=== PATIENT | female | born 1935 | race Caucasian/White ===

== ENCOUNTER 2017-02-04 11:01 | Inpatient (IN) | payer BC, MEDICARE, OTHER ==
[~2017-02-04] VITALS: Ht 162.6 cm; Wt 69.6 kg
[2017-02-04] MEDS ORDERED: SODIUM CHLORIDE 0.9% 1,000ML IVBOLUS ONE (11:30)
[2017-02-04] MEDS ORDERED: SODIUM CHLORIDE FLUSH 10ML SYR IVF ONE (11:30)
[2017-02-04] MEDS ORDERED: LORazepam 2 MG/ML, 1ML IVPush ONE (11:53)
[2017-02-04] MEDS ORDERED: LORazepam 2 MG/ML, 1ML ONE (11:56)
[2017-02-04] MEDS ORDERED: ONDANSETRON 2MG/ML, 2ML ONE (11:56)
[2017-02-04] MEDS ORDERED: ONDANSETRON 2MG/ML, 2ML IVPush ONE (12:00)
[2017-02-04] MEDS ORDERED: PLEASE ENTER ALLERGIES MC SCH ×2 (12:00)
[2017-02-04 12:28] LABS: ASPARTATE AMINO TRANSFERASE 17 U/L (15-37); BLOOD UREA NITROGEN 9 mg/dL (7-18)
[2017-02-04 12:35] LABS: IS PT STATUS REG ER OR PRE ER? YES
[2017-02-04] MEDS ORDERED: ZOLP10TA5 PO (14:28)
[2017-02-04] MEDS ORDERED: TRAZ50TA18 PO (14:28)
[2017-02-04] MEDS ORDERED: SERT100T5 PO (14:28)
[2017-02-04] MEDS ORDERED: SIMV20TA3 PO (14:28)
[2017-02-04] MEDS ORDERED: OXYB5TAB PO (14:28)
[2017-02-04] MEDS ORDERED: ESTR2TAB PO (14:28)
[2017-02-04] MEDS ORDERED: ONDA4TAB13 SL (14:28)
[2017-02-04] MEDS ORDERED: ASPIRIN 325 MG TABLET PO STA (14:56)
[2017-02-04] MEDS ORDERED: ASPIRIN 325 MG TABLET ONE (15:11)
[2017-02-04] MEDS ORDERED: GUAIFENESIN/DM 200-20MG, 10ML UDC PO PRN (16:00)
[2017-02-04] MEDS ORDERED: hydrALAzine 20 MG/ML, 1ML IVPush PRN (16:00)
[2017-02-04] MEDS ORDERED: DOCUSATE 100 MG CAPSULE PO PRN (16:00)
[2017-02-04] MEDS ORDERED: HYDROcodone/APAP 5/325 TABLET PO PRN (16:00)
[2017-02-04] MEDS ORDERED: ONDANSETRON 2MG/ML, 2ML IVPush PRN ×2 (16:00)
[2017-02-04] MEDS ORDERED: ZOLPIDEM 5MG TABLET PO PRN (16:00)
[2017-02-04 16:27] VITALS: BP 158/74
[2017-02-04] MEDS: D5%-0.9% NACL+KCL 20MEQ 1,000 ML IV SCH (17:42)
[2017-02-04] MEDS: ENOXAPARIN 40 MG/0.4 ML SQ SCH (17:42)
[2017-02-04 18:30] VITALS: BP 111/70
[2017-02-04] MEDS ORDERED: LORazepam 0.5MG TABLET PO ONE (18:30)
[2017-02-04] MEDS ORDERED: LORazepam 1MG TABLET ONE (18:34)
[2017-02-04 20:05] VITALS: BP 141/83
[2017-02-04] MEDS: TRAZODONE 50MG TABLET PO SCH (21:34)
[2017-02-04] MEDS: SIMVASTATIN 20 MG TABLET PO SCH (21:35)
[2017-02-05 00:08] VITALS: BP 106/65
[2017-02-05] MEDS: ASPIRIN 325 MG TABLET PO SCH (05:46)
[2017-02-05 06:14] LABS: ASPARTATE AMINO TRANSFERASE 19 U/L (15-37); BLOOD UREA NITROGEN 8 mg/dL (7-18)
[2017-02-05 08:00] VITALS: BP 132/74
[2017-02-05] MEDS: D5%-0.9% NACL+KCL 20MEQ 1,000 ML IV SCH (09:23)
[2017-02-05 15:10] VITALS: BP 128/75
[2017-02-05] MEDS: ENOXAPARIN 40 MG/0.4 ML SQ SCH (15:21)
[2017-02-05] MEDS ORDERED: POTASSIUM CHLORIDE 20 MEQ TAB.ER.PRT PO ONE (19:30)
[2017-02-05 19:57] VITALS: BP 174/84
[2017-02-05 20:00] VITALS: BP 117/57
[2017-02-05] MEDS: TRAZODONE 50MG TABLET PO SCH (20:19)
[2017-02-05] MEDS: SIMVASTATIN 20 MG TABLET PO SCH (20:19)
[2017-02-06 02:00] VITALS: BP 123/68
[2017-02-06] MEDS: ASPIRIN 325 MG TABLET PO SCH (05:24)
[2017-02-06 06:00] LABS: BLOOD UREA NITROGEN 10 mg/dL (7-18)
[2017-02-06 08:07] VITALS: BP 117/51
[2017-02-06] MEDS ORDERED: POTASSIUM CHLORIDE 20 MEQ TAB.ER.PRT PO ONE (10:30)
[2017-02-06] MEDS ORDERED: MAGNESIUM SULFATE PMX 2GM/50ML 50 ML IV ONE (11:00)
[2017-02-06 16:02] VITALS: BP 120/56
[2017-02-06] MEDS: SIMVASTATIN 20 MG TABLET PO SCH (20:00)
[2017-02-06] MEDS: ENOXAPARIN 40 MG/0.4 ML SQ SCH (20:00)
[2017-02-06] MEDS: TRAZODONE 50MG TABLET PO SCH (20:00)
[2017-02-06 21:38] VITALS: BP 124/56
[2017-02-07 01:20] VITALS: BP 114/50
[2017-02-07 05:20] LABS: ASPARTATE AMINO TRANSFERASE 9 U/L (15-37); BLOOD UREA NITROGEN 12 mg/dL (7-18)
[2017-02-07] MEDS: ASPIRIN 325 MG TABLET PO SCH (05:32)
[2017-02-07 07:53] VITALS: BP 126/62
[2017-02-07 13:17] VITALS: BP 117/70
== END 2017-02-07 13:30 | DRG 199 ==
LOC: ED 14:17 → EDIP 14:59 → 4EST 16:26
PROVIDERS: ADMIT Internal Medicine; ATTEND Internal Medicine
PROC: 0T9B70Z Drainage of Bladder with Drainage Device, Via Natural or Artificial Opening (ICD-10-PCS; principal; 2017-02-04)
DX: S27.0XXA Traumatic pneumothorax, initial encounter (principal); G93.41 Metabolic encephalopathy; I63.30 Cerebral infarction due to thrombosis of unspecified cerebral artery; E87.1 Hypo-osmolality and hyponatremia; S22.49XA Multiple fractures of ribs, unspecified side, initial encounter for closed fracture; T76.11XA Adult physical abuse, suspected, initial encounter; D72.829 Elevated white blood cell count, unspecified; E83.42 Hypomagnesemia; E87.6 Hypokalemia; I65.21 Occlusion and stenosis of right carotid artery; R13.10 Dysphagia, unspecified
CPT/HCPCS: 36415; 70450; 70551; 71010; 71250; 80048; 80053; 80061; 80307; 81003; 82140; 82570; 83036; 83605; 83735; 83935; 84100; 84300; 84443; 84484; 85025; 85610; 85651; 85730; 86140; 86592; 87040; 87324; 93005; 93306; 93880; 96361; 96374; J1650; J2405; J2060; J3475; J3480; J7030

== ENCOUNTER 2017-04-12 15:23 | Inpatient (IN) | payer BC, MEDICARE ==
[~2017-04-12] VITALS: Ht 165.1 cm; Wt 73.3 kg
[~2017-04-12 15:23] MED LIST: ESTR2TAB PO; ONDA4TAB13 SL; OXYB5TAB PO; SERT100T5 PO; SIMV20TA3 PO; TRAZ50TA18 PO; ZOLP10TA5 PO
[2017-04-12] MEDS ORDERED: L.E.T SOLUTION TP ONE ×2 (15:42→15:47)
[2017-04-12] MEDS ORDERED: LIDOCAINE 1%, 20ML ONE ×2 (15:56→17:24)
[2017-04-12] MEDS ORDERED: SODIUM CHLORIDE 0.9% 1,000ML IVBOLUS ONE (16:00)
[2017-04-12] MEDS ORDERED: SODIUM CHLORIDE FLUSH 10ML SYR IVF ONE (16:00)
[2017-04-12] MEDS ORDERED: DIPH,PERTUSS(ACELL),TET VAC/PF 0.5 ML IM-VACC ONE ×2 (16:00→16:13)
[2017-04-12] MEDS ORDERED: MORPHINE SULFATE 4 MG/ML, 1ML ONE ×3 (16:08→17:52)
[2017-04-12] MEDS: MORPHINE SULFATE 4 MG/ML, 1ML IVPush PRN ×3 (16:15→23:24)
[2017-04-12] MEDS ORDERED: morphine SULFATE 10 MG/ML, 1ML IVPush ONE (16:30)
[2017-04-12 16:45] LABS: HEMATOCRIT 40.2 % (34.6-47.8); HEMOGLOBIN 13.6 g/dL (11.7-16.4); WHITE BLOOD COUNT 10.6 x10^3/uL (3.4-10)
[2017-04-12 16:50] LABS: BLOOD UREA NITROGEN 18 mg/dL (7-18)
[2017-04-12] MEDS ORDERED: MORPHINE SULFATE 4 MG/ML, 1ML IVPush ONE (17:30)
[2017-04-12] MEDS ORDERED: ACETAMINOPHEN 500 MG TABLET ONE (18:30)
[2017-04-12] MEDS ORDERED: ACETAMINOPHEN 500 MG TABLET PO ONE (19:00)
[2017-04-12] MEDS ORDERED: hydrALAzine 20 MG/ML, 1ML IVPush PRN (19:30)
[2017-04-12] MEDS ORDERED: ONDANSETRON 2MG/ML, 2ML IVPush PRN (19:30)
[2017-04-12] MEDS ORDERED: POLYETHYLENE GLYCOL 17 GM PACKET PO PRN (19:30)
[2017-04-12] MEDS ORDERED: BISACODYL 10 MG SUPP PR PRN (19:30)
[2017-04-12] MEDS ORDERED: ONDANSETRON 2MG/ML, 2ML ONE (20:38)
[2017-04-12] MEDS ORDERED: SODIUM CHLORIDE FLUSH 10ML SYR IVF SCH (21:00)
[2017-04-12 21:15] VITALS: BP 146/83
[2017-04-12] MEDS: OXYcodone IR 5MG TABLET PO PRN (21:42)
[2017-04-12] MEDS: SIMVASTATIN 20 MG TABLET PO SCH (23:03)
[2017-04-12] MEDS: LISINOPRIL 20 MG TABLET PO SCH (23:04)
[2017-04-12] MEDS: OXYBUTYNIN CHLORIDE 5 MG TABLET PO SCH (23:04)
[2017-04-13] VITALS (10 sets, daily range): BP systolic 90–146; BP diastolic 50–83
[2017-04-13] MEDS: OXYcodone IR 5MG TABLET PO PRN ×2 (01:44→05:46)
[2017-04-13 06:16] LABS: HEMATOCRIT 33.8 % (34.6-47.8); HEMOGLOBIN 11.5 g/dL (11.7-16.4)
[2017-04-13 06:35] LABS: ASPARTATE AMINO TRANSFERASE 13 U/L (15-37); BLOOD UREA NITROGEN 17 mg/dL (7-18)
[2017-04-13] MEDS ORDERED: SODIUM CHLORIDE 0.9% 1,000 ML IV SCH (08:00)
[2017-04-13] MEDS: ACETAMINOPHEN 325 MG TABLET PO PRN ×3 (08:25→20:32)
[2017-04-13] MEDS: OXYBUTYNIN CHLORIDE 5 MG TABLET PO SCH ×3 (08:26→20:32)
[2017-04-13] MEDS: SERTRALINE 100MG TABLET PO SCH (09:00)
[2017-04-13] MEDS: LISINOPRIL 20 MG TABLET PO SCH ×2 (09:03→20:32)
[2017-04-13] MEDS: SENNA/DOCUSATE TABLET PO SCH (09:03)
[2017-04-13] MEDS ORDERED: SODIUM CHLORIDE 0.9%, 500ML IVBOLUS ONE (11:00)
[2017-04-13] MEDS ORDERED: POLYETHYLENE GLYCOL 17 GM PACKET PO PRN (20:00)
[2017-04-13] MEDS ORDERED: BISACODYL 10 MG SUPP PR PRN (20:00)
[2017-04-13] MEDS ORDERED: hydrALAzine 20 MG/ML, 1ML IVPush PRN (20:00)
[2017-04-13] MEDS: SIMVASTATIN 20 MG TABLET PO SCH (20:32)
[2017-04-14 03:08] VITALS: BP 126/68
[2017-04-14 06:25] LABS: HEMATOCRIT 34.9 % (34.6-47.8); HEMOGLOBIN 11.5 g/dL (11.7-16.4); WHITE BLOOD COUNT 8.1 x10^3/uL (3.4-10)
[2017-04-14 08:00] VITALS: BP 122/56
[2017-04-14] MEDS: SENNA/DOCUSATE TABLET PO SCH (09:11)
[2017-04-14] MEDS: SERTRALINE 100MG TABLET PO SCH (09:11)
[2017-04-14] MEDS: OXYBUTYNIN CHLORIDE 5 MG TABLET PO SCH ×3 (09:11→20:19)
[2017-04-14] MEDS: ACETAMINOPHEN 325 MG TABLET PO PRN ×2 (09:11→20:18)
[2017-04-14] MEDS: LISINOPRIL 20 MG TABLET PO SCH ×2 (09:12→20:18)
[2017-04-14] MEDS: SODIUM CHLORIDE 0.9% 1,000 ML IV SCH ×2 (09:45→20:24)
[2017-04-14] MEDS: MORPHINE SULFATE 4 MG/ML, 1ML IVPush PRN ×2 (12:39→16:35)
[2017-04-14] MEDS: ONDANSETRON 2MG/ML, 2ML IVPush PRN (16:27)
[2017-04-14 17:05] VITALS: BP 145/73
[2017-04-14 19:50] VITALS: BP 124/69
[2017-04-14] MEDS: SIMVASTATIN 20 MG TABLET PO SCH (20:19)
[2017-04-15 03:35] VITALS: BP 133/71
[2017-04-15 04:56] LABS: HEMATOCRIT 29.9 % (34.6-47.8); HEMOGLOBIN 10.4 g/dL (11.7-16.4); WHITE BLOOD COUNT 7.5 x10^3/uL (3.4-10)
[2017-04-15 05:04] LABS: BLOOD UREA NITROGEN 9 mg/dL (7-18)
[2017-04-15 07:40] VITALS: BP 102/64
[2017-04-15] MEDS: OXYBUTYNIN CHLORIDE 5 MG TABLET PO SCH ×3 (09:00→21:06)
[2017-04-15] MEDS: SENNA/DOCUSATE TABLET PO SCH (09:00)
[2017-04-15] MEDS: SERTRALINE 100MG TABLET PO SCH (09:00)
[2017-04-15] MEDS: LISINOPRIL 20 MG TABLET PO SCH ×2 (09:00→21:06)
[2017-04-15] MEDS: SODIUM CHLORIDE 0.9% 1,000 ML IV SCH (10:15)
[2017-04-15] MEDS: MORPHINE SULFATE 4 MG/ML, 1ML IVPush PRN (10:41)
[2017-04-15] MEDS: HYDROcodone/APAP 5/325 TABLET PO PRN (12:52)
[2017-04-15 13:56] VITALS: BP 140/68
[2017-04-15 19:15] VITALS: BP 136/73
[2017-04-15] MEDS: SIMVASTATIN 20 MG TABLET PO SCH (21:07)
[2017-04-16 01:42] VITALS: BP 145/75
[2017-04-16 05:51] LABS: HEMATOCRIT 33.5 % (34.6-47.8); HEMOGLOBIN 11.3 g/dL (11.7-16.4); WHITE BLOOD COUNT 8.3 x10^3/uL (3.4-10)
[2017-04-16 05:59] LABS: BLOOD UREA NITROGEN 9 mg/dL (7-18)
[2017-04-16 08:40] VITALS: BP 161/74
[2017-04-16] MEDS: OXYBUTYNIN CHLORIDE 5 MG TABLET PO SCH ×3 (08:50→21:22)
[2017-04-16] MEDS: LISINOPRIL 20 MG TABLET PO SCH ×2 (08:51→21:23)
[2017-04-16] MEDS: HYDROcodone/APAP 5/325 TABLET PO PRN ×2 (08:51→16:40)
[2017-04-16] MEDS: SERTRALINE 100MG TABLET PO SCH (08:51)
[2017-04-16] MEDS: SENNA/DOCUSATE TABLET PO SCH (08:52)
[2017-04-16] MEDS: ONDANSETRON 2MG/ML, 2ML IVPush PRN (08:55)
[2017-04-16 13:47] VITALS: BP 141/65
[2017-04-16] MEDS: ARTIFICIAL TEARS OPHTH SOLN 15ML EACHEYE PRN (16:54)
[2017-04-16 20:18] VITALS: BP 125/66
[2017-04-16] MEDS: SIMVASTATIN 20 MG TABLET PO SCH (21:22)
[2017-04-17 02:55] VITALS: BP 156/70
[2017-04-17] MEDS: HYDROcodone/APAP 5/325 TABLET PO PRN ×4 (05:09→17:21)
[2017-04-17 06:42] LABS: HEMATOCRIT 33.1 % (34.6-47.8); HEMOGLOBIN 11.3 g/dL (11.7-16.4)
[2017-04-17 06:51] LABS: BLOOD UREA NITROGEN 8 mg/dL (7-18)
[2017-04-17 07:45] VITALS: BP 149/66
[2017-04-17] MEDS: SENNA/DOCUSATE TABLET PO SCH (09:00)
[2017-04-17] MEDS ORDERED: SERTRALINE 50MG TABLET PO SCH (09:00)
[2017-04-17] MEDS: OXYBUTYNIN CHLORIDE 5 MG TABLET PO SCH ×3 (09:21→20:43)
[2017-04-17] MEDS: LISINOPRIL 20 MG TABLET PO SCH ×2 (09:21→20:44)
[2017-04-17] MEDS: ARTIFICIAL TEARS OPHTH SOLN 15ML EACHEYE PRN (09:29)
[2017-04-17 13:20] VITALS: BP 164/70
[2017-04-17 19:56] VITALS: BP 160/75
[2017-04-17] MEDS: SIMVASTATIN 20 MG TABLET PO SCH (20:44)
[2017-04-18 01:54] VITALS: BP 149/72
[2017-04-18] MEDS: HYDROcodone/APAP 5/325 TABLET PO PRN ×4 (02:13→22:33)
[2017-04-18 06:41] LABS: HEMATOCRIT 33.4 % (34.6-47.8); HEMOGLOBIN 11.3 g/dL (11.7-16.4); WHITE BLOOD COUNT 7.7 x10^3/uL (3.4-10)
[2017-04-18 06:55] LABS: BLOOD UREA NITROGEN 11 mg/dL (7-18)
[2017-04-18 07:46] VITALS: BP 150/66
[2017-04-18] MEDS: ONDANSETRON 2MG/ML, 2ML IVPush PRN (08:58)
[2017-04-18] MEDS: SENNA/DOCUSATE TABLET PO SCH (09:00)
[2017-04-18] MEDS: OXYBUTYNIN CHLORIDE 5 MG TABLET PO SCH ×3 (09:01→22:33)
[2017-04-18] MEDS: LISINOPRIL 20 MG TABLET PO SCH ×2 (09:01→22:33)
[2017-04-18 14:30] VITALS: BP 137/69
[2017-04-18 17:59] LABS: POTASSIUM,URINE RANDOM 16 mmol/L
[2017-04-18 19:12] VITALS: BP 127/68
[2017-04-18] MEDS: SIMVASTATIN 20 MG TABLET PO SCH (22:33)
[2017-04-19 02:08] VITALS: BP 147/61
[2017-04-19 05:16] LABS: HEMOGLOBIN 11.4 g/dL (11.7-16.4); WHITE BLOOD COUNT 7.2 x10^3/uL (3.4-10)
[2017-04-19 05:28] LABS: BLOOD UREA NITROGEN 10 mg/dL (7-18)
[2017-04-19] MEDS: SENNA/DOCUSATE TABLET PO SCH (08:03)
[2017-04-19] MEDS: OXYBUTYNIN CHLORIDE 5 MG TABLET PO SCH (08:14)
[2017-04-19] MEDS: ONDANSETRON 2MG/ML, 2ML IVPush PRN (08:14)
[2017-04-19] MEDS: LISINOPRIL 20 MG TABLET PO SCH (08:14)
[2017-04-19] MEDS: HYDROcodone/APAP 5/325 TABLET PO PRN ×2 (08:14→13:56)
[2017-04-19 08:30] VITALS: BP 152/73
[2017-04-19 14:30] VITALS: BP 143/71
[2017-04-19] MEDS ORDERED: HYDR-3240 PO (14:59)
[2017-04-19] MEDS ORDERED: LISI-170 PO (14:59)
[2017-04-19] MEDS ORDERED: FLU VACC QS2017-18 (36MOS+) UP/PF 0.5 ML IM-VACC ONE (15:30)
[2017-04-19] MEDS: ACETAMINOPHEN 325 MG TABLET PO PRN (15:51)
== END 2017-04-19 17:55 | disposition home or self-care (01) | DRG 580 ==
LOC: ED 18:09 → EDIP 18:41 → SUATTDRO 18:48 → 3NE 21:20
PROVIDERS: ADMIT Hospitalist; ATTEND Family Medicine
PROC: 0JQ00ZZ Repair Scalp Subcutaneous Tissue and Fascia, Open Approach (ICD-10-PCS; principal; 2017-04-12)
DX: S01.01XA Laceration without foreign body of scalp, initial encounter (principal); I50.32 Chronic diastolic (congestive) heart failure; I11.0 Hypertensive heart disease with heart failure; D62 Acute posthemorrhagic anemia; E87.1 Hypo-osmolality and hyponatremia; I65.21 Occlusion and stenosis of right carotid artery; W19.XXXA Unspecified fall, initial encounter; Z88.6 Allergy status to analgesic agent; E78.5 Hyperlipidemia, unspecified; R32 Unspecified urinary incontinence; Y93.89 Activity, other specified; Y92.89 Other specified places as the place of occurrence of the external cause; Y99.8 Other external cause status; Z86.73 Personal history of transient ischemic attack (TIA), and cerebral infarction without residual deficits
CPT/HCPCS: 12005; 36415; 70450; 72125; 80048; 80053; 81001; 82040; 82436; 83930; 83935; 84133; 84300; 84443; 85025; 85610; 85730; 87324; 90471; 90686; 90715; 93005; 96361; 96374; 96375; 96376; J2405; J2270; J7030; J7040

== ENCOUNTER 2017-05-19 10:04 | Emergency (ER) | payer MEDICARE ==
[~2017-05-19] VITALS: Ht 165.1 cm; Wt 67.0 kg
[~2017-05-19 10:04] MED LIST changes: +HYDR-3240 PO; +LISI-170 PO
[2017-05-19] MEDS ORDERED: LORazepam 2 MG/ML, 1ML ONE (10:28)
[2017-05-19] MEDS ORDERED: ONDANSETRON 2MG/ML, 2ML ONE (10:28)
[2017-05-19] MEDS ORDERED: SODIUM CHLORIDE 0.9% 1,000ML IVBOLUS ONE (10:30)
[2017-05-19] MEDS ORDERED: ONDANSETRON 2MG/ML, 2ML IVPush ONE (10:30)
[2017-05-19] MEDS ORDERED: LORazepam 2 MG/ML, 1ML IVPush ONE (10:30)
[2017-05-19 11:18] LABS: HEMATOCRIT 46.8 % (34.6-47.8); HEMOGLOBIN 15.7 g/dL (11.7-16.4); WHITE BLOOD COUNT 19.3 x10^3/uL (3.4-10)
[2017-05-19 11:32] LABS: DIFF TOTAL CELLS COUNTED 100 CELL DIFF
[2017-05-19 11:34] LABS: ANISOCYTOSIS 1+
[2017-05-19 11:37] LABS: ASPARTATE AMINO TRANSFERASE 15 U/L (15-37); BLOOD UREA NITROGEN 18 mg/dL (7-18); OVALOCYTES 1+
[2017-05-19 11:41] LABS: IS PT STATUS REG ER OR PRE ER? YES
[2017-05-19 11:43] LABS: VERIFY COUNTS? YES
[2017-05-19] MEDS ORDERED: HYDROcodone/APAP 5/325 TABLET ONE (13:11)
[2017-05-19] MEDS ORDERED: HYDROcodone/APAP 5/325 TABLET PO ONE (13:30)
[2017-05-19 14:14] VITALS: BP 166/74
== END 2017-05-19 14:21 | disposition home or self-care (01) ==
LOC: ED 12:39
DX: D72.829 Elevated white blood cell count, unspecified (principal); F43.20 Adjustment disorder, unspecified; R11.0 Nausea; I10 Essential (primary) hypertension; Z86.73 Personal history of transient ischemic attack (TIA), and cerebral infarction without residual deficits
CPT/HCPCS: 36415; 71010; 80053; 81001; 84484; 85025; 93005; 96361; 96374; 96375; 99285; J2060; J2405; J7030

== ENCOUNTER 2017-05-20 12:03 | Emergency (ER) | payer MEDICARE ==
[~2017-05-20] VITALS: Ht 165.1 cm; Wt 65.0 kg
[2017-05-20 12:17] VITALS: BP 170/69
== END 2017-05-20 15:09 | disposition home or self-care (01) ==
LOC: ED 14:30
DX: F41.1 Generalized anxiety disorder (principal); I10 Essential (primary) hypertension; Z86.73 Personal history of transient ischemic attack (TIA), and cerebral infarction without residual deficits
CPT/HCPCS: 99284

== ENCOUNTER 2018-01-12 10:23 | Emergency (ER) | payer MEDICARE ==
[~2018-01-12] VITALS: Ht 165.1 cm; Wt 75.0 kg
[2018-01-12] MEDS ORDERED: ZOLP-413 PO (10:36)
[2018-01-12 11:45] LABS: BASOPHILS # (AUTO) 0.02 x10^3/uL (0-0.1); BASOPHILS % (AUTO) 0 % (0-1); EOSINOPHILS # (AUTO) 0.01 x10^3/uL (0-0.4); EOSINOPHILS % (AUTO) 0 % (1-7); LYMPHOCYTES # (AUTO) 1.37 x10^3/uL (1-3.4); LYMPHOCYTES % (AUTO) 12 % (22-44); MD NO; MEAN CORPUSCULAR HEMOGLOBIN 31.4 pg (27.0-34.8); MEAN CORPUSCULAR HGB CONC 33.4 g/dL (32.4-35.8); MEAN CORPUSCULAR VOLUME 94.1 fL (80-100); MEAN PLATELET VOLUME 6.7 fL (7.4-10.4); MONOCYTES # (AUTO) 0.42 x10^3/uL (0.2-0.8); MONOCYTES % (AUTO) 4 % (2-9); NEUTROPHILS # (AUTO) 9.54 x10^3/uL (1.8-6.8); NEUTROPHILS % (AUTO) 84 % (42-75); PLATELET COUNT 478 x10^3/uL (130-400); RED BLOOD COUNT 4.28 x10^6/uL (3.82-5.3); RED CELL DISTRIBUTION WIDTH 13.1 % (9.6-15.2)
[2018-01-12 11:57] LABS: ALANINE AMINOTRANSFERASE 15 U/L (12-78); ALBUMIN 3.8 g/dL (3.4-5.0); ANION GAP 10 mmol/L (5-15); CALCIUM 9.6 mg/dL (8.5-10.1); CHLORIDE 101 mmol/L (98-107); CREATININE 0.71 mg/dL (0.55-1.02); TROPONIN I < 0.015 ng/mL (0.000-0.045)
[2018-01-12 12:00] LABS: ALKALINE PHOSPHATASE 102 U/L (45-117); BILIRUBIN,TOTAL 0.2 mg/dL (0.2-1.0); TOTAL PROTEIN 7.6 g/dL (6.4-8.2)
[2018-01-12] MEDS ORDERED: MORPHINE SULFATE 4 MG/ML, 1ML IVPush PRN (12:00)
[2018-01-12] MEDS ORDERED: FAMOTIDINE 20 MG/2 ML IVP ONE (12:00)
[2018-01-12] MEDS ORDERED: PROCHLORPERAZINE 5 MG/ML, 2ML IVPush ONE (12:00)
[2018-01-12] MEDS ORDERED: PROCHLORPERAZINE 5 MG/ML, 2ML ONE (12:17)
[2018-01-12] MEDS ORDERED: MORPHINE SULFATE 4 MG/ML, 1ML ONE (12:17)
[2018-01-12] MEDS ORDERED: FAMOTIDINE 20 MG/2 ML ONE (12:18)
[2018-01-12] MEDS ORDERED: SODIUM CHLORIDE 0.9%, 500ML IVBOLUS ONE (12:30)
[2018-01-12 12:32] LABS: MICROSCOPIC NOT IND
[2018-01-12 12:34] LABS: CULTURE INDICATED? NO
[2018-01-12 14:24] VITALS: BP 154/46
== END 2018-01-12 14:27 | disposition home or self-care (01) ==
LOC: ED 11:07
DX: K29.00 Acute gastritis without bleeding (principal); I10 Essential (primary) hypertension; Z86.73 Personal history of transient ischemic attack (TIA), and cerebral infarction without residual deficits
CPT/HCPCS: 36415; 71046; 74177; 80053; 81003; 83690; 84484; 85025; 93005; 96361; 96374; 96375; 99285; J0780; J7040; S0028

== ENCOUNTER 2018-01-15 09:05 | Emergency (ER) | payer MEDICARE ==
[~2018-01-15] VITALS: Ht 165.1 cm; Wt 78.0 kg
[~2018-01-15 09:05] MED LIST changes: +ZOLP-413 PO
[2018-01-15] MEDS ORDERED: SODIUM CHLORIDE FLUSH 10ML SYR IVF ONE (09:30)
[2018-01-15] MEDS ORDERED: ASPIRIN 81 MG TABLET CHEW PO ONE (09:30)
[2018-01-15] MEDS ORDERED: MAALOX/HYOSCYAMINE/LIDOCAINE 45 ML BTL PO ONE (09:30)
[2018-01-15] MEDS ORDERED: ASPIRIN 81 MG TABLET CHEW ONE (09:44)
[2018-01-15] MEDS ORDERED: MAALOX/HYOSCYAMINE/LIDOCAINE 45 ML BTL ONE (09:44)
[2018-01-15 10:12] LABS: BASOPHILS # (AUTO) 0.05 x10^3/uL (0-0.1); BASOPHILS % (AUTO) 1 % (0-1); EOSINOPHILS # (AUTO) 0.08 x10^3/uL (0-0.4); EOSINOPHILS % (AUTO) 1 % (1-7); LYMPHOCYTES # (AUTO) 1.76 x10^3/uL (1-3.4); LYMPHOCYTES % (AUTO) 21 % (22-44); MD NO; MEAN CORPUSCULAR HEMOGLOBIN 32.4 pg (27.0-34.8); MEAN CORPUSCULAR HGB CONC 34.2 g/dL (32.4-35.8); MEAN CORPUSCULAR VOLUME 94.6 fL (80-100); MEAN PLATELET VOLUME 6.8 fL (7.4-10.4); MONOCYTES % (AUTO) 5 % (2-9); NEUTROPHILS # (AUTO) 6.12 x10^3/uL (1.8-6.8); NEUTROPHILS % (AUTO) 73 % (42-75); PLATELET COUNT 486 x10^3/uL (130-400); RED BLOOD COUNT 4.12 x10^6/uL (3.82-5.3); RED CELL DISTRIBUTION WIDTH 13.3 % (9.6-15.2)
[2018-01-15 10:14] LABS: ALANINE AMINOTRANSFERASE 17 U/L (12-78); ALBUMIN 3.7 g/dL (3.4-5.0); ANION GAP 9 mmol/L (5-15); CHLORIDE 106 mmol/L (98-107); CREATININE 0.74 mg/dL (0.55-1.02)
[2018-01-15 10:19] LABS: ALKALINE PHOSPHATASE 92 U/L (45-117); TOTAL PROTEIN 7.4 g/dL (6.4-8.2); TROPONIN I < 0.015 ng/mL (0.000-0.045)
[2018-01-15 10:32] VITALS: BP 150/74
[2018-01-15 10:36] LABS: BILIRUBIN,TOTAL 0.2 mg/dL (0.2-1.0)
== END 2018-01-15 11:18 | disposition home or self-care (01) ==
LOC: ED 10:59
DX: K21.0 Gastro-esophageal reflux disease with esophagitis (principal); I10 Essential (primary) hypertension; Z86.73 Personal history of transient ischemic attack (TIA), and cerebral infarction without residual deficits; Z88.5 Allergy status to narcotic agent
CPT/HCPCS: 36415; 71045; 80053; 83690; 83735; 84443; 84484; 85025; 93005; 99285

== ENCOUNTER 2018-01-16 07:10 | Observation (INO) | payer MEDICARE ==
[~2018-01-16] VITALS: Ht 165.1 cm; Wt 75.8 kg
[2018-01-16] MEDS ORDERED: FAMOTIDINE 20 MG/2 ML ONE (07:51)
[2018-01-16] MEDS ORDERED: DIPHENHYDRAMINE 50 MG/ML, 1ML ONE (07:51)
[2018-01-16] MEDS ORDERED: METOCLOPRAMIDE 5 MG/ML, 2ML ONE (07:52)
[2018-01-16] MEDS ORDERED: MORPHINE SULFATE 4 MG/ML, 1ML ONE ×2 (07:52→08:57)
[2018-01-16] MEDS ORDERED: MORPHINE SULFATE 4 MG/ML, 1ML IVPush PRN ×2 (08:00→09:00)
[2018-01-16] MEDS ORDERED: FAMOTIDINE 20 MG/2 ML IVP ONE (08:00)
[2018-01-16] MEDS ORDERED: DIPHENHYDRAMINE 50 MG/ML, 1ML IVPush ONE (08:00)
[2018-01-16] MEDS ORDERED: METOCLOPRAMIDE 5 MG/ML, 2ML IVPush ONE (08:00)
[2018-01-16 08:22] LABS: ALANINE AMINOTRANSFERASE 16 U/L (12-78); ALBUMIN 3.9 g/dL (3.4-5.0); ANION GAP 7 mmol/L (5-15); CALCIUM 9.3 mg/dL (8.5-10.1); CHLORIDE 105 mmol/L (98-107); CREATININE 0.86 mg/dL (0.55-1.02)
[2018-01-16 08:24] LABS: ALKALINE PHOSPHATASE 96 U/L (45-117); BILIRUBIN,TOTAL 0.2 mg/dL (0.2-1.0); TOTAL PROTEIN 7.6 g/dL (6.4-8.2)
[2018-01-16 08:43] LABS: MEAN CORPUSCULAR HEMOGLOBIN 31.6 pg (27.0-34.8); MEAN CORPUSCULAR HGB CONC 33.4 g/dL (32.4-35.8); MEAN CORPUSCULAR VOLUME 94.7 fL (80-100); MEAN PLATELET VOLUME 6.5 fL (7.4-10.4); PLATELET COUNT 487 x10^3/uL (130-400); RED BLOOD COUNT 4.34 x10^6/uL (3.82-5.3); RED CELL DISTRIBUTION WIDTH 13.6 % (9.6-15.2)
[2018-01-16 08:50] LABS: INTERNATIONAL NORMALIZED RATIO 1.01 (0.93-1.1); PROTHROMBIN TIME 10.5 Seconds (9.6-11.5)
[2018-01-16 08:55] LABS: BASOPHILS # (AUTO) 0.03 x10^3/uL (0-0.1); BASOPHILS % (AUTO) 0 % (0-1); EOSINOPHILS # (AUTO) 0.02 x10^3/uL (0-0.4); EOSINOPHILS % (AUTO) 0 % (1-7); LYMPHOCYTES # (AUTO) 1.25 x10^3/uL (1-3.4); LYMPHOCYTES % (AUTO) 11 % (22-44); MD SCAN; MONOCYTES # (AUTO) 0.27 x10^3/uL (0.2-0.8); MONOCYTES % (AUTO) 2 % (2-9); NEUTROPHILS # (AUTO) 9.59 x10^3/uL (1.8-6.8); NEUTROPHILS % (AUTO) 86 % (42-75)
[2018-01-16 09:37] LABS: TROPONIN I < 0.015 ng/mL (0.000-0.045)
[2018-01-16 10:44] VITALS: BP 157/70
[2018-01-16] MEDS ORDERED: ZOLPIDEM 5MG TABLET PO PRN (11:30)
[2018-01-16] MEDS ORDERED: ONDANSETRON ODT 4 MG PO PRN (11:30)
[2018-01-16] MEDS ORDERED: ACETAMINOPHEN 325 MG TABLET PO PRN (11:30)
== END 2018-01-16 13:15 | disposition left against medical advice (07) ==
LOC: ED 09:26 → EDIP 09:55 → INTOOBSV 09:55 → 5SO 10:31
PROVIDERS: ADMIT Hospitalist; ATTEND Hospitalist
DX: R07.89 Other chest pain (principal); K21.9 Gastro-esophageal reflux disease without esophagitis; I10 Essential (primary) hypertension; F41.1 Generalized anxiety disorder; Z86.73 Personal history of transient ischemic attack (TIA), and cerebral infarction without residual deficits
CPT/HCPCS: 36415; 70450; 71045; 80053; 83690; 84484; 85025; 85610; 85730; 93005; 96374; 96375; 96376; 99285; G0378; J1200; J2765; S0028

== ENCOUNTER 2018-01-18 02:00 | Emergency (ER) | payer MEDICARE ==
[~2018-01-18] VITALS: Ht 165.1 cm; Wt 75.0 kg
[2018-01-18 02:29] LABS: MICROSCOPIC INDICATED
[2018-01-18] MEDS ORDERED: MORPHINE SULFATE 4 MG/ML, 1ML IVPush PRN (02:30)
[2018-01-18] MEDS ORDERED: SODIUM CHLORIDE FLUSH 10ML SYR IVF ONE (02:30)
[2018-01-18] MEDS ORDERED: ONDANSETRON 2MG/ML, 2ML IVPush ONE (02:30)
[2018-01-18] MEDS ORDERED: SODIUM CHLORIDE 0.9% 1,000ML IVBOLUS ONE (02:30)
[2018-01-18 02:35] LABS: CULTURE INDICATED? YES
[2018-01-18] MEDS ORDERED: ONDANSETRON 2MG/ML, 2ML ONE (03:11)
[2018-01-18] MEDS ORDERED: MORPHINE SULFATE 4 MG/ML, 1ML ONE (03:12)
[2018-01-18 03:22] LABS: BASOPHILS # (AUTO) 0.04 x10^3/uL (0-0.1); BASOPHILS % (AUTO) 0 % (0-1); EOSINOPHILS # (AUTO) 0.12 x10^3/uL (0-0.4); EOSINOPHILS % (AUTO) 1 % (1-7); LYMPHOCYTES % (AUTO) 19 % (22-44); MD NO; MEAN CORPUSCULAR HEMOGLOBIN 31.9 pg (27.0-34.8); MEAN CORPUSCULAR HGB CONC 33.4 g/dL (32.4-35.8); MEAN CORPUSCULAR VOLUME 95.7 fL (80-100); MEAN PLATELET VOLUME 6.7 fL (7.4-10.4); MONOCYTES # (AUTO) 0.58 x10^3/uL (0.2-0.8); MONOCYTES % (AUTO) 6 % (2-9); NEUTROPHILS # (AUTO) 6.77 x10^3/uL (1.8-6.8); NEUTROPHILS % (AUTO) 73 % (42-75); PLATELET COUNT 499 x10^3/uL (130-400); RED BLOOD COUNT 4.04 x10^6/uL (3.82-5.3); RED CELL DISTRIBUTION WIDTH 13.8 % (9.6-15.2)
[2018-01-18 03:31] LABS: ALANINE AMINOTRANSFERASE 19 U/L (12-78); ALBUMIN 3.9 g/dL (3.4-5.0); ANION GAP 11 mmol/L (5-15); CALCIUM 9.1 mg/dL (8.5-10.1); CHLORIDE 104 mmol/L (98-107); CREATININE 0.91 mg/dL (0.55-1.02)
[2018-01-18 03:36] LABS: ALKALINE PHOSPHATASE 89 U/L (45-117); BILIRUBIN,TOTAL 0.2 mg/dL (0.2-1.0); TOTAL PROTEIN 7.4 g/dL (6.4-8.2); TROPONIN I < 0.015 ng/mL (0.000-0.045)
[2018-01-18 04:22] VITALS: BP 177/64
== END 2018-01-18 04:38 | disposition home or self-care (01) ==
LOC: ED 03:14
DX: R10.84 Generalized abdominal pain (principal); K21.9 Gastro-esophageal reflux disease without esophagitis; Z86.73 Personal history of transient ischemic attack (TIA), and cerebral infarction without residual deficits
CPT/HCPCS: 36415; 74022; 80053; 81001; 83690; 84484; 85025; 87086; 93005; 96374; 96375; 99285; J2405; J7030

== ENCOUNTER 2018-01-18 11:55 | Emergency (ER) | payer MEDICARE ==
[~2018-01-18] VITALS: Ht 165.1 cm; Wt 72.0 kg
[2018-01-18] MEDS ORDERED: MAALOX/HYOSCYAMINE/LIDOCAINE 45 ML BTL ONE (12:20)
[2018-01-18] MEDS ORDERED: LORazepam 0.5MG TABLET ONE (12:20)
[2018-01-18] MEDS ORDERED: LORazepam 1MG TABLET PO ONE (12:30)
[2018-01-18] MEDS ORDERED: MAALOX/HYOSCYAMINE/LIDOCAINE 45 ML BTL PO ONE (12:30)
[2018-01-18 12:33] LABS: BASOPHILS # (AUTO) 0.08 x10^3/uL (0-0.1); BASOPHILS % (AUTO) 1 % (0-1); EOSINOPHILS # (AUTO) 0.09 x10^3/uL (0-0.4); EOSINOPHILS % (AUTO) 1 % (1-7); LYMPHOCYTES # (AUTO) 2.29 x10^3/uL (1-3.4); LYMPHOCYTES % (AUTO) 25 % (22-44); MD NO; MEAN CORPUSCULAR HEMOGLOBIN 32.1 pg (27.0-34.8); MEAN CORPUSCULAR HGB CONC 33.6 g/dL (32.4-35.8); MEAN CORPUSCULAR VOLUME 95.8 fL (80-100); MEAN PLATELET VOLUME 6.7 fL (7.4-10.4); MONOCYTES # (AUTO) 0.56 x10^3/uL (0.2-0.8); MONOCYTES % (AUTO) 6 % (2-9); NEUTROPHILS # (AUTO) 6.17 x10^3/uL (1.8-6.8); NEUTROPHILS % (AUTO) 67 % (42-75); PLATELET COUNT 439 x10^3/uL (130-400); RED CELL DISTRIBUTION WIDTH 13.4 % (9.6-15.2)
[2018-01-18 12:54] LABS: ALANINE AMINOTRANSFERASE 16 U/L (12-78); ALBUMIN 3.6 g/dL (3.4-5.0); ANION GAP 11 mmol/L (5-15); CALCIUM 8.7 mg/dL (8.5-10.1); CHLORIDE 107 mmol/L (98-107)
[2018-01-18 12:57] LABS: ALKALINE PHOSPHATASE 82 U/L (45-117); BILIRUBIN,TOTAL 0.2 mg/dL (0.2-1.0); TOTAL PROTEIN 6.8 g/dL (6.4-8.2)
[2018-01-18 14:52] VITALS: BP 144/45
== END 2018-01-18 14:56 | disposition home or self-care (01) ==
LOC: ED 12:06
DX: R10.12 Left upper quadrant pain (principal); R10.13 Epigastric pain; I10 Essential (primary) hypertension; K21.9 Gastro-esophageal reflux disease without esophagitis
CPT/HCPCS: 36415; 80053; 83690; 85025; 99284

== ENCOUNTER 2018-01-19 13:47 | Emergency (ER) | payer MEDICARE ==
[~2018-01-19] VITALS: Ht 165.1 cm; Wt 73.0 kg
[2018-01-19] MEDS ORDERED: ONDANSETRON ODT 4 MG PO ONE (14:00)
[2018-01-19] MEDS ORDERED: MAALOX/HYOSCYAMINE/LIDOCAINE 45 ML BTL PO ONE (14:00)
[2018-01-19] MEDS ORDERED: LORazepam 1MG TABLET PO ONE (14:00)
[2018-01-19] MEDS ORDERED: ONDANSETRON ODT 4 MG ONE (14:10)
[2018-01-19] MEDS ORDERED: LORazepam 0.5MG TABLET ONE (14:10)
[2018-01-19] MEDS ORDERED: MAALOX/HYOSCYAMINE/LIDOCAINE 45 ML BTL ONE (14:11)
[2018-01-19 14:13] LABS: BASOPHILS # (AUTO) 0.08 x10^3/uL (0-0.1); BASOPHILS % (AUTO) 1 % (0-1); EOSINOPHILS % (AUTO) 1 % (1-7); LYMPHOCYTES # (AUTO) 1.94 x10^3/uL (1-3.4); LYMPHOCYTES % (AUTO) 19 % (22-44); MD NO; MEAN CORPUSCULAR HEMOGLOBIN 31.3 pg (27.0-34.8); MEAN CORPUSCULAR HGB CONC 32.9 g/dL (32.4-35.8); MEAN CORPUSCULAR VOLUME 95.1 fL (80-100); MEAN PLATELET VOLUME 6.6 fL (7.4-10.4); MONOCYTES # (AUTO) 0.54 x10^3/uL (0.2-0.8); MONOCYTES % (AUTO) 5 % (2-9); NEUTROPHILS # (AUTO) 7.48 x10^3/uL (1.8-6.8); NEUTROPHILS % (AUTO) 74 % (42-75); PLATELET COUNT 431 x10^3/uL (130-400); RED BLOOD COUNT 3.68 x10^6/uL (3.82-5.3)
[2018-01-19 14:23] LABS: ALANINE AMINOTRANSFERASE 16 U/L (12-78); ALBUMIN 3.4 g/dL (3.4-5.0); ANION GAP 9 mmol/L (5-15); CALCIUM 8.4 mg/dL (8.5-10.1); CHLORIDE 110 mmol/L (98-107); CREATININE 0.73 mg/dL (0.55-1.02)
[2018-01-19 14:25] LABS: ALKALINE PHOSPHATASE 90 U/L (45-117); BILIRUBIN,TOTAL 0.2 mg/dL (0.2-1.0); TOTAL PROTEIN 6.7 g/dL (6.4-8.2)
[2018-01-19 15:50] VITALS: BP 179/73
== END 2018-01-19 16:02 | disposition home or self-care (01) ==
LOC: ED 14:09
DX: R10.13 Epigastric pain (principal); F41.1 Generalized anxiety disorder; I10 Essential (primary) hypertension; K21.9 Gastro-esophageal reflux disease without esophagitis; Z86.73 Personal history of transient ischemic attack (TIA), and cerebral infarction without residual deficits
CPT/HCPCS: 36415; 80053; 83690; 85025; 93005; 99285; Q0162

== ENCOUNTER 2018-01-30 04:44 | Emergency (ER) | payer MEDICARE ==
[~2018-01-30] VITALS: Ht 165.1 cm; Wt 75.0 kg
[2018-01-30] MEDS ORDERED: SODIUM CHLORIDE FLUSH 10ML SYR IVF ONE (05:00)
[2018-01-30] MEDS ORDERED: ASPIRIN 81 MG TABLET CHEW PO ONE (05:00)
[2018-01-30] MEDS ORDERED: MAALOX/HYOSCYAMINE/LIDOCAINE 45 ML BTL PO ONE (05:30)
[2018-01-30] MEDS ORDERED: MAALOX/HYOSCYAMINE/LIDOCAINE 45 ML BTL ONE (05:37)
[2018-01-30 05:52] LABS: BASOPHILS # (AUTO) 0.03 x10^3/uL (0-0.1); BASOPHILS % (AUTO) 1 % (0-1); EOSINOPHILS # (AUTO) 0.04 x10^3/uL (0-0.4); EOSINOPHILS % (AUTO) 1 % (1-7); LYMPHOCYTES # (AUTO) 1.13 x10^3/uL (1-3.4); LYMPHOCYTES % (AUTO) 16 % (22-44); MD NO; MEAN CORPUSCULAR HGB CONC 33.5 g/dL (32.4-35.8); MEAN CORPUSCULAR VOLUME 95.6 fL (80-100); MEAN PLATELET VOLUME 7.3 fL (7.4-10.4); MONOCYTES % (AUTO) 4 % (2-9); NEUTROPHILS # (AUTO) 5.48 x10^3/uL (1.8-6.8); NEUTROPHILS % (AUTO) 79 % (42-75); PLATELET COUNT 406 x10^3/uL (130-400); RED BLOOD COUNT 4.29 x10^6/uL (3.82-5.3); RED CELL DISTRIBUTION WIDTH 13.6 % (9.6-15.2)
[2018-01-30 06:06] LABS: ALBUMIN 3.6 g/dL (3.4-5.0); ANION GAP 8 mmol/L (5-15); CALCIUM 9.2 mg/dL (8.5-10.1); CHLORIDE 111 mmol/L (98-107)
[2018-01-30 06:08] VITALS: BP 142/64
[2018-01-30 06:11] LABS: PROTHROMBIN TIME 10.4 Seconds (9.6-11.5)
[2018-01-30 06:12] LABS: CREATININE 0.81 mg/dL (0.55-1.02); TROPONIN I < 0.015 ng/mL (0.000-0.045)
[2018-01-30 06:23] LABS: CLOSTRIDIUM DIFFICILE ANTIGEN NEGATIVE; CLOSTRIDIUM DIFFICILE TOXIN NEGATIVE (Negative)
[2018-01-30] MEDS ORDERED: SODIUM CHLORIDE 0.9% 1,000ML IVBOLUS ONE (07:00)
== END 2018-01-30 08:20 | disposition home or self-care (01) ==
LOC: ED 08:06
DX: R07.89 Other chest pain (principal); K21.9 Gastro-esophageal reflux disease without esophagitis; I10 Essential (primary) hypertension; F41.1 Generalized anxiety disorder; Z86.73 Personal history of transient ischemic attack (TIA), and cerebral infarction without residual deficits; Z90.89 Acquired absence of other organs; Z90.49 Acquired absence of other specified parts of digestive tract; Z90.710 Acquired absence of both cervix and uterus
CPT/HCPCS: 36415; 71046; 80048; 82040; 83690; 83880; 84484; 85025; 85610; 85730; 87324; 89055; 93005; 99285

== ENCOUNTER 2018-01-31 04:29 | Emergency (ER) | payer MEDICARE ==
[~2018-01-31] VITALS: Ht 165.1 cm; Wt 60.0 kg
[2018-01-31] MEDS ORDERED: MAALOX/HYOSCYAMINE/LIDOCAINE 45 ML BTL PO ONE (05:00)
[2018-01-31] MEDS ORDERED: MAALOX/HYOSCYAMINE/LIDOCAINE 45 ML BTL ONE (05:03)
[2018-01-31 05:56] LABS: BASOPHILS # (AUTO) 0.03 x10^3/uL (0-0.1); BASOPHILS % (AUTO) 0 % (0-1); EOSINOPHILS # (AUTO) 0.04 x10^3/uL (0-0.4); EOSINOPHILS % (AUTO) 1 % (1-7); LYMPHOCYTES # (AUTO) 1.31 x10^3/uL (1-3.4); LYMPHOCYTES % (AUTO) 18 % (22-44); MD NO; MEAN CORPUSCULAR HEMOGLOBIN 32.1 pg (27.0-34.8); MEAN CORPUSCULAR HGB CONC 33.7 g/dL (32.4-35.8); MEAN CORPUSCULAR VOLUME 95.4 fL (80-100); MEAN PLATELET VOLUME 7.2 fL (7.4-10.4); MONOCYTES # (AUTO) 0.29 x10^3/uL (0.2-0.8); MONOCYTES % (AUTO) 4 % (2-9); NEUTROPHILS # (AUTO) 5.78 x10^3/uL (1.8-6.8); NEUTROPHILS % (AUTO) 78 % (42-75); PLATELET COUNT 418 x10^3/uL (130-400); RED BLOOD COUNT 4.21 x10^6/uL (3.82-5.3); RED CELL DISTRIBUTION WIDTH 13.9 % (9.6-15.2)
[2018-01-31 06:00] LABS: ALANINE AMINOTRANSFERASE 12 U/L (12-78); ALBUMIN 3.8 g/dL (3.4-5.0); ANION GAP 12 mmol/L (5-15); CALCIUM 8.9 mg/dL (8.5-10.1); CHLORIDE 110 mmol/L (98-107); CREATININE 0.83 mg/dL (0.55-1.02)
[2018-01-31 06:05] LABS: ALKALINE PHOSPHATASE 77 U/L (45-117); BILIRUBIN,TOTAL 0.3 mg/dL (0.2-1.0); TOTAL PROTEIN 7.6 g/dL (6.4-8.2); TROPONIN I < 0.015 ng/mL (0.000-0.045)
[2018-01-31 06:34] VITALS: BP 135/72
== END 2018-01-31 04:50 | disposition home or self-care (01) ==
LOC: ED 04:41
DX: K21.9 Gastro-esophageal reflux disease without esophagitis (principal); R07.89 Other chest pain; I10 Essential (primary) hypertension; Z86.73 Personal history of transient ischemic attack (TIA), and cerebral infarction without residual deficits; Z90.49 Acquired absence of other specified parts of digestive tract; Z90.710 Acquired absence of both cervix and uterus
CPT/HCPCS: 36415; 71045; 80053; 83690; 84484; 85025; 93005; 99285

== ENCOUNTER 2018-02-01 09:55 | Emergency (ER) | payer MEDICARE ==
[~2018-02-01] VITALS: Ht 165.1 cm; Wt 70.5 kg
[~2018-02-01 09:55] MED LIST changes: +TRAZ-136 PO; -TRAZ50TA18 PO
[2018-02-01] MEDS ORDERED: MAALOX/HYOSCYAMINE/LIDOCAINE 45 ML BTL ONE (10:22)
[2018-02-01] MEDS ORDERED: MAALOX/HYOSCYAMINE/LIDOCAINE 45 ML BTL PO ONE (10:30)
[2018-02-01 10:53] LABS: TROPONIN I < 0.015 ng/mL (0.000-0.045)
[2018-02-01 11:05] VITALS: BP 113/88
== END 2018-02-01 12:15 | disposition home or self-care (01) ==
LOC: ED 10:01
DX: K21.9 Gastro-esophageal reflux disease without esophagitis (principal); F41.1 Generalized anxiety disorder; I10 Essential (primary) hypertension; Z86.73 Personal history of transient ischemic attack (TIA), and cerebral infarction without residual deficits
CPT/HCPCS: 36415; 84484; 93005; 99285

== ENCOUNTER 2018-02-12 02:25 | Emergency (ER) | payer MEDICARE ==
[~2018-02-12] VITALS: Ht 167.6 cm; Wt 60.0 kg
[2018-02-12] MEDS ORDERED: ACETAMINOPHEN 325 MG TABLET ONE (02:53)
[2018-02-12] MEDS ORDERED: ACETAMINOPHEN 325 MG TABLET PO ONE (03:00)
[2018-02-12 03:38] VITALS: BP 148/63
== END 2018-02-12 04:29 | disposition home or self-care (01) ==
LOC: ED 04:23
DX: M54.6 Pain in thoracic spine (principal); G89.29 Other chronic pain; K21.9 Gastro-esophageal reflux disease without esophagitis; I10 Essential (primary) hypertension; Z86.73 Personal history of transient ischemic attack (TIA), and cerebral infarction without residual deficits; Z90.49 Acquired absence of other specified parts of digestive tract
CPT/HCPCS: 99283

== ENCOUNTER 2018-02-12 09:39 | Emergency (ER) | payer BC, MEDICARE ==
[~2018-02-12] VITALS: Ht 165.1 cm; Wt 70.6 kg
[2018-02-12] MEDS ORDERED: METOCLOPRAMIDE 5 MG/ML, 2ML ONE (10:09)
[2018-02-12] MEDS ORDERED: DIPHENHYDRAMINE 50 MG/ML, 1ML ONE (10:09)
[2018-02-12] MEDS ORDERED: METOCLOPRAMIDE 5 MG/ML, 2ML IVPush ONE (10:30)
[2018-02-12] MEDS ORDERED: SODIUM CHLORIDE 0.9% 1,000ML IVBOLUS ONE (10:30)
[2018-02-12] MEDS ORDERED: DIPHENHYDRAMINE 50 MG/ML, 1ML IVPush ONE (10:30)
[2018-02-12] MEDS ORDERED: SODIUM CHLORIDE FLUSH 10ML SYR IVF ONE (10:30)
[2018-02-12 11:00] LABS: BASOPHILS # (AUTO) 0.03 x10^3/uL (0-0.1); BASOPHILS % (AUTO) 0 % (0-1); EOSINOPHILS # (AUTO) 0.02 x10^3/uL (0-0.4); EOSINOPHILS % (AUTO) 0 % (1-7); LYMPHOCYTES # (AUTO) 1.61 x10^3/uL (1-3.4); LYMPHOCYTES % (AUTO) 12 % (22-44); MD NO; MEAN CORPUSCULAR HEMOGLOBIN 31.1 pg (27.0-34.8); MEAN CORPUSCULAR HGB CONC 33.3 g/dL (32.4-35.8); MEAN CORPUSCULAR VOLUME 93.4 fL (80-100); MEAN PLATELET VOLUME 7.1 fL (7.4-10.4); MONOCYTES # (AUTO) 0.76 x10^3/uL (0.2-0.8); MONOCYTES % (AUTO) 6 % (2-9); NEUTROPHILS # (AUTO) 10.98 x10^3/uL (1.8-6.8); NEUTROPHILS % (AUTO) 82 % (42-75); PLATELET COUNT 678 x10^3/uL (130-400); RED CELL DISTRIBUTION WIDTH 14.1 % (9.6-15.2)
[2018-02-12 11:12] LABS: INTERNATIONAL NORMALIZED RATIO 1.03 (0.93-1.1); PROTHROMBIN TIME 10.6 Seconds (9.6-11.5)
[2018-02-12 11:21] LABS: ALBUMIN 3.7 g/dL (3.4-5.0); ANION GAP 9 mmol/L (5-15); CALCIUM 9.3 mg/dL (8.5-10.1); CHLORIDE 103 mmol/L (98-107)
[2018-02-12 11:26] LABS: ALKALINE PHOSPHATASE 88 U/L (45-117); BILIRUBIN,TOTAL 0.2 mg/dL (0.2-1.0); CREATININE 1.01 mg/dL (0.55-1.02); TOTAL PROTEIN 7.5 g/dL (6.4-8.2); TROPONIN I < 0.015 ng/mL (0.000-0.045)
[2018-02-12 11:50] LABS: ALANINE AMINOTRANSFERASE 12 U/L (12-78)
[2018-02-12] MEDS ORDERED: ONDANSETRON ODT 4 MG ONE (13:53)
[2018-02-12] MEDS ORDERED: HYDROcodone/APAP 5/325 TABLET ONE (13:54)
[2018-02-12] MEDS ORDERED: ONDANSETRON ODT 4 MG PO ONE (14:00)
[2018-02-12] MEDS ORDERED: HYDROcodone/APAP 5/325 TABLET PO ONE (14:00)
[2018-02-12 14:15] VITALS: BP 132/71
== END 2018-02-12 14:17 | disposition home or self-care (01) ==
LOC: ED 13:15
DX: G89.29 Other chronic pain (principal); R07.9 Chest pain, unspecified; M54.9 Dorsalgia, unspecified; I10 Essential (primary) hypertension; K21.9 Gastro-esophageal reflux disease without esophagitis; Z86.73 Personal history of transient ischemic attack (TIA), and cerebral infarction without residual deficits; Z90.49 Acquired absence of other specified parts of digestive tract
CPT/HCPCS: 36415; 71045; 71250; 80053; 84484; 85025; 85610; 85730; 93005; 96374; 96375; 99285; J1200; J2765; J7030; Q0162

== ENCOUNTER 2018-02-14 13:42 | Inpatient (IN) | payer MEDICARE ==
[~2018-02-14] VITALS: Ht 165.1 cm; Wt 86.4 kg
[2018-02-14] MEDS ORDERED: PANTOPRAZOLE 80 MG in SODIUM CHLORIDE 0.9% 50 ML IVPB ONE (13:53)
[2018-02-14] MEDS ORDERED: SODIUM CHLORIDE FLUSH 10ML SYR IVF ONE (14:00)
[2018-02-14] MEDS ORDERED: ONDANSETRON 2MG/ML, 2ML IVPush ONE (14:00)
[2018-02-14] MEDS ORDERED: SODIUM CHLORIDE 0.9% 1,000ML IVBOLUS ONE ×2 (14:00→15:00)
[2018-02-14] MEDS ORDERED: ONDANSETRON 2MG/ML, 2ML ONE (14:09)
[2018-02-14] MEDS ORDERED: SUCR1TAB PO (14:33)
[2018-02-14] MEDS: PANTOPRAZOLE 80 MG in SODIUM CHLORIDE 0.9% 100 ML IV SCH ×4 (14:34→21:29)
[2018-02-14 14:41] LABS: MEAN CORPUSCULAR HEMOGLOBIN 31.1 pg (27.0-34.8); MEAN CORPUSCULAR HGB CONC 33.5 g/dL (32.4-35.8); MEAN CORPUSCULAR VOLUME 93.1 fL (80-100); MEAN PLATELET VOLUME 6.9 fL (7.4-10.4); PLATELET COUNT 593 x10^3/uL (130-400); RED BLOOD COUNT 2.98 x10^6/uL (3.82-5.3); RED CELL DISTRIBUTION WIDTH 13.9 % (9.6-15.2)
[2018-02-14 15:06] LABS: BASOPHILS # (AUTO) 0.04 x10^3/uL (0-0.1); BASOPHILS % (AUTO) 0 % (0-1); EOSINOPHILS # (AUTO) 0.01 x10^3/uL (0-0.4); EOSINOPHILS % (AUTO) 0 % (1-7); LYMPHOCYTES % (AUTO) 4 % (22-44); MD SCAN; MONOCYTES # (AUTO) 1.13 x10^3/uL (0.2-0.8); MONOCYTES % (AUTO) 6 % (2-9); NEUTROPHILS # (AUTO) 16.63 x10^3/uL (1.8-6.8); NEUTROPHILS % (AUTO) 90 % (42-75)
[2018-02-14 15:10] LABS: INTERNATIONAL NORMALIZED RATIO 1.22 (0.93-1.1); PROTHROMBIN TIME 12.5 Seconds (9.6-11.5)
[2018-02-14 15:31] VITALS: BP 137/71
[2018-02-14 15:32] LABS: ALANINE AMINOTRANSFERASE 13 U/L (12-78); ALBUMIN 2.8 g/dL (3.4-5.0); ANION GAP 18 mmol/L (5-15); CALCIUM 7.6 mg/dL (8.5-10.1); CHLORIDE 107 mmol/L (98-107); CREATININE 1.66 mg/dL (0.55-1.02)
[2018-02-14 15:34] LABS: ALKALINE PHOSPHATASE 75 U/L (45-117); BILIRUBIN,TOTAL 0.3 mg/dL (0.2-1.0); CREATINE KINASE, TOTAL 155 U/L (26-192)
[2018-02-14 15:43] VITALS: BP 151/69
[2018-02-14 16:00] VITALS: BP 121/97
[2018-02-14 16:12] VITALS: BP 144/111
[2018-02-14 16:35] VITALS: BP 171/82
[2018-02-14] MEDS ORDERED: hydrALAzine 20 MG/ML, 1ML IVPush PRN (17:00)
[2018-02-14] MEDS ORDERED: BISACODYL 10 MG SUPP PR PRN (17:00)
[2018-02-14] MEDS ORDERED: FENTANYL PF 100 MCG/2ML ONE ×2 (17:07→17:46)
[2018-02-14] MEDS ORDERED: MIDAZOLAM 1 MG/ML, 5ML ONE ×2 (17:07→17:46)
[2018-02-14 17:21] LABS: TROPONIN I 0.041 ng/mL (0.000-0.045)
[2018-02-14 20:50] LABS: CLOSTRIDIUM DIFFICILE ANTIGEN NEGATIVE; CLOSTRIDIUM DIFFICILE TOXIN NEGATIVE (Negative)
[2018-02-14] MEDS: hydrALAzine 20 MG/ML, 1ML IV PRN (21:46)
[2018-02-14 22:28] VITALS: BP 166/64
[2018-02-14] MEDS ORDERED: POTASSIUM CHLORIDE 40 MEQ in SODIUM CHLORIDE 0.9% 100 ML IV ONE (23:30)
[2018-02-14] MEDS: SODIUM CHLORIDE 0.9% 1,000 ML IV SCH (23:31)
[2018-02-15] MEDS ORDERED: DIGOXIN 0.25 MG/ML, 2ML ONE (00:17)
[2018-02-15] MEDS ORDERED: DIGOXIN 0.25 MG/ML, 2ML IVPush ONE ×2 (00:30→06:00)
[2018-02-15] MEDS: ONDANSETRON 2MG/ML, 2ML IVPush PRN ×3 (03:12→19:17)
[2018-02-15 03:54] LABS: ALBUMIN 2.6 g/dL (3.4-5.0); ANION GAP 9 mmol/L (5-15); CHLORIDE 114 mmol/L (98-107)
[2018-02-15 03:58] LABS: ALANINE AMINOTRANSFERASE 13 U/L (12-78); ALKALINE PHOSPHATASE 61 U/L (45-117); BILIRUBIN,TOTAL 1.5 mg/dL (0.2-1.0); CREATININE 0.94 mg/dL (0.55-1.02); TOTAL PROTEIN 5.4 g/dL (6.4-8.2)
[2018-02-15 04:00] VITALS: BP 148/46
[2018-02-15 04:09] LABS: MEAN CORPUSCULAR HEMOGLOBIN 30.7 pg (27.0-34.8); MEAN CORPUSCULAR HGB CONC 33.8 g/dL (32.4-35.8); RED BLOOD COUNT 3.31 x10^6/uL (3.82-5.3); RED CELL DISTRIBUTION WIDTH 15.7 % (9.6-15.2)
[2018-02-15 04:12] LABS: MEAN PLATELET VOLUME 7.1 fL (7.4-10.4); PLATELET COUNT 421 x10^3/uL (130-400)
[2018-02-15 04:26] LABS: BASOPHILS # (AUTO) 0.02 x10^3/uL (0-0.1); BASOPHILS % (AUTO) 0 % (0-1); EOSINOPHILS # (AUTO) 0.01 x10^3/uL (0-0.4); EOSINOPHILS % (AUTO) 0 % (1-7); LYMPHOCYTES # (AUTO) 2.22 x10^3/uL (1-3.4); LYMPHOCYTES % (AUTO) 15 % (22-44); MD SCAN; MONOCYTES # (AUTO) 1.16 x10^3/uL (0.2-0.8); MONOCYTES % (AUTO) 8 % (2-9); NEUTROPHILS # (AUTO) 11.32 x10^3/uL (1.8-6.8); NEUTROPHILS % (AUTO) 77 % (42-75)
[2018-02-15] MEDS: PANTOPRAZOLE 80 MG in SODIUM CHLORIDE 0.9% 100 ML IV SCH ×2 (07:11→17:50)
[2018-02-15] MEDS ORDERED: POTASSIUM PHOSPHATE 44 MEQ in SODIUM CHLORIDE 0.9% 500 ML IV ONE (07:30)
[2018-02-15] MEDS: SODIUM CHLORIDE 0.9% 1,000 ML IV SCH (07:57)
[2018-02-15 08:53] LABS: MICROSCOPIC NOT IND
[2018-02-15 09:11] LABS: CULTURE INDICATED? NO
[2018-02-15] MEDS: SUCRALFATE 1 GM/10 ML UDC PO SCH ×3 (09:40→20:06)
[2018-02-15] MEDS: SODIUM CHLORIDE 0.45% 1,000 ML IV SCH (13:10)
[2018-02-15] MEDS: PROMETHAZINE 25 MG/ML, 1ML IM PRN (20:46)
[2018-02-16] MEDS: SODIUM CHLORIDE 0.45% 1,000 ML IV SCH (02:20)
[2018-02-16] MEDS ORDERED: LORazepam 2 MG/ML, 1ML ONE (02:31)
[2018-02-16] MEDS ORDERED: NOREPINEPHRINE 1 MG/ML, 4ML ONE ×3 (02:33→06:09)
[2018-02-16] MEDS ORDERED: DIGOXIN 0.25 MG/ML, 2ML ONE (02:41)
[2018-02-16 02:50] LABS: BASOPHILS # (AUTO) 0.07 x10^3/uL (0-0.1); BASOPHILS % (AUTO) 1 % (0-1); EOSINOPHILS # (AUTO) 0.06 x10^3/uL (0-0.4); EOSINOPHILS % (AUTO) 1 % (1-7); LYMPHOCYTES # (AUTO) 4.11 x10^3/uL (1-3.4); LYMPHOCYTES % (AUTO) 31 % (22-44); MD NO; MEAN CORPUSCULAR HEMOGLOBIN 29.9 pg (27.0-34.8); MEAN CORPUSCULAR HGB CONC 32.4 g/dL (32.4-35.8); MEAN PLATELET VOLUME 6.9 fL (7.4-10.4); MONOCYTES # (AUTO) 1.06 x10^3/uL (0.2-0.8); MONOCYTES % (AUTO) 8 % (2-9); NEUTROPHILS % (AUTO) 60 % (42-75); PLATELET COUNT 462 x10^3/uL (130-400); RED BLOOD COUNT 2.59 x10^6/uL (3.82-5.3); RED CELL DISTRIBUTION WIDTH 16.3 % (9.6-15.2)
[2018-02-16] MEDS ORDERED: PHENYLEPHRINE 10 MG/ML ONE ×2 (02:52→04:14)
[2018-02-16] MEDS ORDERED: FILTER 0.22 MICRON IV PRN (03:00)
[2018-02-16] MEDS ORDERED: AMIODARONE 150 MG in DEXTROSE 5% 100 ML IV ONE (03:00)
[2018-02-16] MEDS ORDERED: PHENYLEPHRINE 20 MG in SODIUM CHLORIDE 0.9% 248 ML IV PRN (03:00)
[2018-02-16 03:02] LABS: ALANINE AMINOTRANSFERASE 13 U/L (12-78); ALBUMIN 2.1 g/dL (3.4-5.0); ANION GAP 12 mmol/L (5-15); CALCIUM 6.8 mg/dL (8.5-10.1); CHLORIDE 114 mmol/L (98-107); CREATININE 0.83 mg/dL (0.55-1.02)
[2018-02-16] MEDS: PROMETHAZINE 25 MG/ML, 1ML IM PRN (03:03)
[2018-02-16 03:04] LABS: ALKALINE PHOSPHATASE 46 U/L (45-117); BILIRUBIN,TOTAL 0.4 mg/dL (0.2-1.0); TOTAL PROTEIN 4.5 g/dL (6.4-8.2)
[2018-02-16] MEDS ORDERED: FENTANYL PF 100 MCG/2ML ONE (03:08)
[2018-02-16] MEDS ORDERED: FENTANYL PF 100 MCG/2ML IVPush STA (03:10)
[2018-02-16 03:29] VITALS: BP 77/34
[2018-02-16] MEDS ORDERED: MAGNESIUM SULFATE PMX 2GM/50ML 50 ML IV ONE ×2 (03:30→08:00)
[2018-02-16] MEDS ORDERED: DIGOXIN 0.25 MG/ML, 2ML IVPush ONE (03:30)
[2018-02-16] MEDS: PANTOPRAZOLE 80 MG in SODIUM CHLORIDE 0.9% 100 ML IV SCH ×2 (03:30→17:19)
[2018-02-16 03:35] VITALS: BP 84/25
[2018-02-16 03:50] VITALS: BP 71/38
[2018-02-16 03:51] VITALS: BP 71/38
[2018-02-16] MEDS ORDERED: FENTANYL PF 250 MCG/5ML ONE (03:51)
[2018-02-16] MEDS ORDERED: ETOMIDATE 20 MG/10 ML ONE (03:53)
[2018-02-16] MEDS ORDERED: SODIUM BICARB 8.4%, 50ML SYRINGE ONE ×2 (03:53)
[2018-02-16] MEDS ORDERED: CEFAZOLIN 1,000 MG ONE ×2 (03:54)
[2018-02-16] MEDS ORDERED: SUCCINYLCHOLINE 20 MG/ML, 10ML ONE (03:54)
[2018-02-16] MEDS ORDERED: ROCURONIUM 10MG/ML,5ML ONE (03:54)
[2018-02-16] MEDS ORDERED: SODIUM BICARB 8.4%, 50ML SYRINGE IVPush STA ×2 (03:55→05:22)
[2018-02-16] MEDS ORDERED: WATER-INJECTION,STERILE 10 ML IV ONE (03:55)
[2018-02-16] MEDS ORDERED: EPINEPHRINE SYRINGE 0.1 MG/ML, 10ML ONE ×2 (03:56→08:00)
[2018-02-16] MEDS ORDERED: VASOPRESSIN 100 UNIT in SODIUM CHLORIDE 0.9% 495 ML IV PRN (04:00)
[2018-02-16] MEDS ORDERED: LORazepam 2 MG/ML, 1ML IVPush ONE (04:00)
[2018-02-16] MEDS ORDERED: AMIODARONE 50 MG/ML, 3ML IVPush ONE (04:00)
[2018-02-16] MEDS ORDERED: VASOPRESSIN 20 UNIT/ML, 1ML ONE (04:14)
[2018-02-16] MEDS ORDERED: NOREPINEPHRINE 4 MG in SODIUM CHLORIDE 0.9% 246 ML IV PRN (05:30)
[2018-02-16 06:39] LABS: MEAN CORPUSCULAR HEMOGLOBIN 29.4 pg (27.0-34.8); MEAN CORPUSCULAR HGB CONC 32.9 g/dL (32.4-35.8); MEAN CORPUSCULAR VOLUME 89.6 fL (80-100); MEAN PLATELET VOLUME 7.1 fL (7.4-10.4); PLATELET COUNT 207 x10^3/uL (130-400); RED CELL DISTRIBUTION WIDTH 15.6 % (9.6-15.2)
[2018-02-16 06:50] LABS: ALBUMIN 2.1 g/dL (3.4-5.0); ANION GAP 17 mmol/L (5-15); CALCIUM 6.2 mg/dL (8.5-10.1); CHLORIDE 118 mmol/L (98-107)
[2018-02-16 06:54] LABS: ALANINE AMINOTRANSFERASE 28 U/L (12-78); ALKALINE PHOSPHATASE 55 U/L (45-117); BILIRUBIN,TOTAL 0.7 mg/dL (0.2-1.0); CREATININE 1.01 mg/dL (0.55-1.02); TOTAL PROTEIN 4.3 g/dL (6.4-8.2)
[2018-02-16 06:55] LABS: INTERNATIONAL NORMALIZED RATIO 1.34 (0.93-1.1); PROTHROMBIN TIME 13.9 Seconds (9.6-11.5)
[2018-02-16] MEDS: SUCRALFATE 1 GM/10 ML UDC PO SCH ×4 (07:00→21:34)
[2018-02-16 07:16] LABS: BASOPHILS # (AUTO) 0.15 x10^3/uL (0-0.1); BASOPHILS % (AUTO) 1 % (0-1); EOSINOPHILS # (AUTO) 0.07 x10^3/uL (0-0.4); EOSINOPHILS % (AUTO) 0 % (1-7); LYMPHOCYTES # (AUTO) 3.18 x10^3/uL (1-3.4); LYMPHOCYTES % (AUTO) 18 % (22-44); MD SCAN; MONOCYTES # (AUTO) 1.08 x10^3/uL (0.2-0.8); MONOCYTES % (AUTO) 6 % (2-9); NEUTROPHILS # (AUTO) 13.05 x10^3/uL (1.8-6.8); NEUTROPHILS % (AUTO) 74 % (42-75)
[2018-02-16] MEDS ORDERED: AMIODARONE 50 MG/ML, 3ML ONE (08:00)
[2018-02-16] MEDS: SODIUM BICARB 8.4%,50ML SYR. 150 MEQ in DEXTROSE 5% 1,000 ML IV SCH ×2 (08:07→18:12)
[2018-02-16] MEDS ORDERED: PROPOFOL 100 ML IV ONE (08:36)
[2018-02-16] MEDS ORDERED: CALCIUM CHLORIDE 13.6 MEQ in SODIUM CHLORIDE 0.9% 100 ML IV ONE (09:00)
[2018-02-16 10:36] LABS: MEAN CORPUSCULAR VOLUME 88.2 fL (80-100); MEAN PLATELET VOLUME 7.2 fL (7.4-10.4); PLATELET COUNT 223 x10^3/uL (130-400); RED BLOOD COUNT 5.29 x10^6/uL (3.82-5.3); RED CELL DISTRIBUTION WIDTH 15.1 % (9.6-15.2)
[2018-02-16 10:42] LABS: FIO2 50 %
[2018-02-16] MEDS: CEFOTETAN PMX 2GM/50ML 50 ML IV SCH (10:50)
[2018-02-16 11:09] LABS: MD YES
[2018-02-16 11:10] LABS: BAND#(MANUAL) 1.21 x10^3/uL; BANDS%(MANUAL) 6 % (0-7); LYMPH#(MANUAL) 2.21 x10^3/uL (1-3.4); LYMPHS% (MANUAL) 11 % (22-44); MONOS#(MANUAL) 1.41 x10^3/uL (0.3-2.7); MONOS% (MANUAL) 7 % (2-9); NRBC % (MANUAL) 1 % (0-1); SEG#(MANUAL) 15.28 x10^3/uL (1.8-6.8); SEGS% (MANUAL) 76 % (42-75)
[2018-02-16 11:11] LABS: <PLATELET ESTIMATE> ADEQUATE; LARGE PLATELETS 1+; POLYCHROMASIA 1+
[2018-02-16 12:33] LABS: D-DIMER (DIC) 5.98 ug/mlFEU (0.00-0.52); PROTIME 13.1 Seconds (9.6-11.5)
[2018-02-16] MEDS: morphine SULFATE 10 MG/ML, 1ML IVPush PRN (13:35)
[2018-02-16] MEDS: PROPOFOL 100 ML IV PRN ×2 (17:29→21:34)
[2018-02-16] MEDS: ACETAMINOPHEN 325 MG TABLET PO PRN ×2 (18:01→19:18)
[2018-02-16] MEDS ORDERED: PROPOFOL 100 ML IV PRN (18:14)
[2018-02-16] MEDS ORDERED: PHARMACY MAY ADJ FOR RENAL FX MC SCH (18:30)
[2018-02-16] MEDS ORDERED: LIDOCAINE-MPF 1%, 2ML ENDO PRN (18:30)
[2018-02-16] MEDS: NOREPINEPHRINE 16 MG in SODIUM CHLORIDE 0.9% 234 ML IV PRN (19:14)
[2018-02-17] MEDS: CEFOTETAN PMX 2GM/50ML 50 ML IV SCH ×2 (00:43→10:40)
[2018-02-17] MEDS: SODIUM BICARB 8.4%,50ML SYR. 150 MEQ in DEXTROSE 5% 1,000 ML IV SCH (00:44)
[2018-02-17] MEDS: PANTOPRAZOLE 80 MG in SODIUM CHLORIDE 0.9% 100 ML IV SCH ×2 (03:44→14:05)
[2018-02-17] MEDS: morphine SULFATE 10 MG/ML, 1ML IVPush PRN ×2 (04:09→08:52)
[2018-02-17 04:45] LABS: ANION GAP 8 mmol/L (5-15); CALCIUM 6.4 mg/dL (8.5-10.1); CHLORIDE 110 mmol/L (98-107); CREATININE 2.48 mg/dL (0.55-1.02); MEAN CORPUSCULAR HEMOGLOBIN 29.7 pg (27.0-34.8); MEAN CORPUSCULAR HGB CONC 33.8 g/dL (32.4-35.8); MEAN PLATELET VOLUME 7.6 fL (7.4-10.4); PLATELET COUNT 169 x10^3/uL (130-400); RED BLOOD COUNT 4.59 x10^6/uL (3.82-5.3); RED CELL DISTRIBUTION WIDTH 15.5 % (9.6-15.2)
[2018-02-17 04:49] LABS: D-DIMER (DIC) 1.26 ug/mlFEU (0.00-0.52); PROTIME 13.5 Seconds (9.6-11.5)
[2018-02-17 04:51] LABS: INTERNATIONAL NORMALIZED RATIO 1.3 (0.93-1.1); PROTHROMBIN TIME 13.5 Seconds (9.6-11.5)
[2018-02-17] MEDS ORDERED: POTASSIUM CHLORIDE 40 MEQ in SODIUM CHLORIDE 0.9% 100 ML IV ONE (05:30)
[2018-02-17 05:38] LABS: MD YES
[2018-02-17 05:41] LABS: BAND#(MANUAL) 1.42 x10^3/uL; BANDS%(MANUAL) 8 % (0-7); LYMPHS% (MANUAL) 9 % (22-44); MONOS#(MANUAL) 0.71 x10^3/uL (0.3-2.7); MONOS% (MANUAL) 4 % (2-9); NRBC % (MANUAL) 1 % (0-1); SEG#(MANUAL) 14.06 x10^3/uL (1.8-6.8); SEGS% (MANUAL) 79 % (42-75)
[2018-02-17 05:43] LABS: <PLATELET ESTIMATE> ADEQUATE; <PLT MORPHOLOGY> NORMAL PLT MORPH; ANISOCYTOSIS 1+; OVALOCYTES 1+; POLYCHROMASIA 1+
[2018-02-17] MEDS: PROPOFOL 100 ML IV PRN ×3 (06:47→22:33)
[2018-02-17] MEDS ORDERED: POTASSIUM PHOSPHATE 44 MEQ in SODIUM CHLORIDE 0.9% 500 ML IV ONE (07:30)
[2018-02-17] MEDS ORDERED: SODIUM CHLORIDE 0.45% 1,000 ML IV SCH (07:30)
[2018-02-17] MEDS ORDERED: CALCIUM CHLORIDE 13.6 MEQ in SODIUM CHLORIDE 0.9% 100 ML IV ONE (07:30)
[2018-02-17] MEDS: SUCRALFATE 1 GM/10 ML UDC PO SCH ×3 (08:52→21:21)
[2018-02-17] MEDS: FENTANYL PF 100 MCG/2ML IVPush PRN ×2 (11:23→18:03)
[2018-02-17] MEDS: LACTATED RINGERS 1,000 ML IV SCH (13:04)
[2018-02-17] MEDS: NOREPINEPHRINE 16 MG in SODIUM CHLORIDE 0.9% 234 ML IV PRN (14:06)
[2018-02-18] MEDS: PANTOPRAZOLE 80 MG in SODIUM CHLORIDE 0.9% 100 ML IV SCH ×3 (00:38→20:46)
[2018-02-18] MEDS: LACTATED RINGERS 1,000 ML IV SCH (02:41)
[2018-02-18] MEDS: FENTANYL PF 100 MCG/2ML IVPush PRN ×3 (02:41→11:59)
[2018-02-18] MEDS: SUCRALFATE 1 GM/10 ML UDC PO SCH ×4 (04:53→20:25)
[2018-02-18 05:17] LABS: MEAN CORPUSCULAR HEMOGLOBIN 30.2 pg (27.0-34.8); MEAN CORPUSCULAR VOLUME 88.8 fL (80-100); MEAN PLATELET VOLUME 7.7 fL (7.4-10.4); PLATELET COUNT 193 x10^3/uL (130-400); RED CELL DISTRIBUTION WIDTH 15.9 % (9.6-15.2)
[2018-02-18 05:30] LABS: ALANINE AMINOTRANSFERASE 28 U/L (12-78); ALBUMIN 1.5 g/dL (3.4-5.0); ANION GAP 7 mmol/L (5-15); CALCIUM 6.8 mg/dL (8.5-10.1); CHLORIDE 111 mmol/L (98-107)
[2018-02-18 05:32] LABS: ALKALINE PHOSPHATASE 65 U/L (45-117); BILIRUBIN,TOTAL 0.4 mg/dL (0.2-1.0); CREATININE 2.89 mg/dL (0.55-1.02); TOTAL PROTEIN 4.2 g/dL (6.4-8.2)
[2018-02-18 05:38] LABS: MD YES
[2018-02-18 05:41] LABS: <PLATELET ESTIMATE> ADEQUATE; ANISOCYTOSIS 1+; BAND#(MANUAL) 0.62 x10^3/uL; BANDS%(MANUAL) 3 % (0-7); EOS#(MANUAL) 0.21 x10^3/uL (0.0-0.4); EOS% (MANUAL) 1 % (1-7); LYMPH#(MANUAL) 1.85 x10^3/uL (1-3.4); LYMPHS% (MANUAL) 9 % (22-44); METAMYELOCYTES# (MANUAL) 0.21 x10^3/uL (0-0); METAMYELOCYTES% (MANUAL) 1 % (0-1); MONOS#(MANUAL) 0.82 x10^3/uL (0.3-2.7); MONOS% (MANUAL) 4 % (2-9); SEG#(MANUAL) 16.81 x10^3/uL (1.8-6.8); SEGS% (MANUAL) 82 % (42-75)
[2018-02-18 05:42] LABS: <PLT MORPHOLOGY> NORMAL PLT MORPH
[2018-02-18 05:43] LABS: TOXIC GRAN 1+
[2018-02-18 05:44] LABS: POLYCHROMASIA 1+
[2018-02-18] MEDS ORDERED: PIPERACILLIN/TAZO 2.25 GM in SODIUM CHLORIDE 0.9% 50 ML IV SCH (07:30)
[2018-02-18] MEDS ORDERED: ERGOCALCIFEROL 50,000 UNIT CAPSULE PO SCH (07:30)
[2018-02-18] MEDS: PIPERACILLIN/TAZO/PMX 2.25GM 50 ML IVPB SCH ×3 (07:44→20:25)
[2018-02-18] MEDS ORDERED: AMIODARONE 150 MG in DEXTROSE 5% 100 ML IVPB ONE (09:10)
[2018-02-18] MEDS ORDERED: FILTER 0.22 MICRON IV PRN (09:30)
[2018-02-18] MEDS: AMIODARONE 900 MG in DEXTROSE 5% 482 ML IV PRN (09:45)
[2018-02-18] MEDS: CALCITRIOL 0.25 MCG CAPSULE PO SCH (09:54)
[2018-02-18] MEDS ORDERED: LACTATED RINGERS 1,000 ML IV SCH (12:00)
[2018-02-19] MEDS: PROPOFOL 100 ML IV PRN ×2 (00:23→12:50)
[2018-02-19] MEDS: PIPERACILLIN/TAZO/PMX 2.25GM 50 ML IVPB SCH ×4 (01:06→19:18)
[2018-02-19] MEDS: FENTANYL PF 100 MCG/2ML IVPush PRN ×4 (01:07→19:19)
[2018-02-19] MEDS: SUCRALFATE 1 GM/10 ML UDC PO SCH ×4 (04:16→20:40)
[2018-02-19] MEDS: PANTOPRAZOLE 80 MG in SODIUM CHLORIDE 0.9% 100 ML IV SCH ×2 (06:02→16:39)
[2018-02-19 06:37] LABS: MEAN CORPUSCULAR HEMOGLOBIN 29.9 pg (27.0-34.8); MEAN CORPUSCULAR HGB CONC 33.8 g/dL (32.4-35.8); MEAN CORPUSCULAR VOLUME 88.5 fL (80-100); MEAN PLATELET VOLUME 7.9 fL (7.4-10.4); PLATELET COUNT 149 x10^3/uL (130-400); RED BLOOD COUNT 3.47 x10^6/uL (3.82-5.3); RED CELL DISTRIBUTION WIDTH 15.9 % (9.6-15.2)
[2018-02-19 06:38] LABS: ALANINE AMINOTRANSFERASE 17 U/L (12-78); ALBUMIN 1.3 g/dL (3.4-5.0); ANION GAP 9 mmol/L (5-15); CALCIUM 6.6 mg/dL (8.5-10.1); CHLORIDE 108 mmol/L (98-107); CREATININE 2.62 mg/dL (0.55-1.02)
[2018-02-19 06:40] LABS: ALKALINE PHOSPHATASE 56 U/L (45-117); BILIRUBIN,TOTAL 0.3 mg/dL (0.2-1.0); TOTAL PROTEIN 3.8 g/dL (6.4-8.2); TRIGLYCERIDES 104 mg/dL (50-200)
[2018-02-19 08:02] LABS: MD YES
[2018-02-19 08:04] LABS: ANISOCYTOSIS 1+; BAND#(MANUAL) 0.73 x10^3/uL; BANDS%(MANUAL) 5 % (0-7); EOS#(MANUAL) 0.29 x10^3/uL (0.0-0.4); EOS% (MANUAL) 2 % (1-7); LYMPHS% (MANUAL) 13 % (22-44); MONOS#(MANUAL) 0.44 x10^3/uL (0.3-2.7); MONOS% (MANUAL) 3 % (2-9); POLYCHROMASIA 1+; SEG#(MANUAL) 11.24 x10^3/uL (1.8-6.8); SEGS% (MANUAL) 77 % (42-75)
[2018-02-19 08:05] LABS: <PLATELET ESTIMATE> ADEQUATE; <PLT MORPHOLOGY> NORMAL PLT MORPH; PMNS WITH VACUOLES 1+; TOXIC GRAN 1+
[2018-02-19] MEDS ORDERED: POTASSIUM CHLORIDE 40 MEQ in SODIUM CHLORIDE 0.9% 500 ML IV ONE (09:00)
[2018-02-19] MEDS: CALCITRIOL 0.25 MCG CAPSULE PO SCH ×2 (09:00→09:04)
[2018-02-19] MEDS ORDERED: FUROSEMIDE 40 MG/4 ML IV ONE (09:00)
[2018-02-19] MEDS: POTASSIUM CHLORIDE 20 MEQ TAB.ER.PRT NG SCH ×2 (09:03→16:39)
[2018-02-19] MEDS: CALCITRIOL NG SCH (09:54)
[2018-02-19] MEDS: AMIODARONE 900 MG in DEXTROSE 5% 482 ML IV PRN (13:00)
[2018-02-19 16:37] LABS: MEAN CORPUSCULAR HEMOGLOBIN 30.3 pg (27.0-34.8); MEAN CORPUSCULAR VOLUME 89.1 fL (80-100); MEAN PLATELET VOLUME 8.2 fL (7.4-10.4); PLATELET COUNT 162 x10^3/uL (130-400); RED BLOOD COUNT 3.66 x10^6/uL (3.82-5.3); RED CELL DISTRIBUTION WIDTH 15.8 % (9.6-15.2)
[2018-02-20] MEDS: FENTANYL PF 100 MCG/2ML IVPush PRN ×2 (00:20→15:16)
[2018-02-20 04:46] LABS: ALBUMIN 1.2 g/dL (3.4-5.0); ANION GAP 8 mmol/L (5-15); CHLORIDE 108 mmol/L (98-107)
[2018-02-20 04:50] LABS: ALANINE AMINOTRANSFERASE 14 U/L (12-78); ALKALINE PHOSPHATASE 56 U/L (45-117); BILIRUBIN,TOTAL 0.4 mg/dL (0.2-1.0); TOTAL PROTEIN 4.2 g/dL (6.4-8.2)
[2018-02-20 04:56] LABS: MEAN CORPUSCULAR HEMOGLOBIN 30.6 pg (27.0-34.8); MEAN CORPUSCULAR HGB CONC 34.2 g/dL (32.4-35.8); MEAN CORPUSCULAR VOLUME 89.4 fL (80-100); MEAN PLATELET VOLUME 8.4 fL (7.4-10.4); PLATELET COUNT 152 x10^3/uL (130-400); RED BLOOD COUNT 3.36 x10^6/uL (3.82-5.3); RED CELL DISTRIBUTION WIDTH 15.9 % (9.6-15.2)
[2018-02-20] MEDS: PIPERACILLIN/TAZO/PMX 2.25GM 50 ML IVPB SCH ×3 (05:34→15:36)
[2018-02-20] MEDS: PANTOPRAZOLE 80 MG in SODIUM CHLORIDE 0.9% 100 ML IV SCH ×2 (05:34→15:47)
[2018-02-20] MEDS: SUCRALFATE 1 GM/10 ML UDC PO SCH ×4 (05:35→22:42)
[2018-02-20 06:33] LABS: MD YES
[2018-02-20 06:36] LABS: ANISOCYTOSIS 1+; LYMPH#(MANUAL) 0.58 x10^3/uL (1-3.4); LYMPHS% (MANUAL) 6 % (22-44); METAMYELOCYTES# (MANUAL) 0.19 x10^3/uL (0-0); METAMYELOCYTES% (MANUAL) 2 % (0-1); MONOS#(MANUAL) 0.39 x10^3/uL (0.3-2.7); MONOS% (MANUAL) 4 % (2-9); SEG#(MANUAL) 8.54 x10^3/uL (1.8-6.8); SEGS% (MANUAL) 88 % (42-75)
[2018-02-20 06:37] LABS: <PLATELET ESTIMATE> ADEQUATE; <PLT MORPHOLOGY> NORMAL PLT MORPH; POLYCHROMASIA 1+; TOXIC GRAN 1+
[2018-02-20] MEDS ORDERED: MAGNESIUM SULFATE PMX 1GM/100ML IV ONE (08:30)
[2018-02-20] MEDS: POTASSIUM CHLORIDE 20 MEQ TAB.ER.PRT NG SCH ×2 (08:39→16:57)
[2018-02-20] MEDS ORDERED: MAGNESIUM SULFATE 1 GM in SODIUM CHLORIDE 0.9% 50 ML IV ONE (09:00)
[2018-02-20] MEDS: CALCITRIOL NG SCH ×2 (09:00→10:58)
[2018-02-20] MEDS: AMIODARONE 900 MG in DEXTROSE 5% 482 ML IV PRN (21:06)
[2018-02-21] MEDS: PANTOPRAZOLE 80 MG in SODIUM CHLORIDE 0.9% 100 ML IV SCH ×3 (00:38→20:35)
[2018-02-21] MEDS: PIPERACILLIN/TAZO/PMX 2.25GM 50 ML IVPB SCH ×3 (00:38→16:53)
[2018-02-21] MEDS: SUCRALFATE 1 GM/10 ML UDC PO SCH ×4 (04:25→21:06)
[2018-02-21 04:39] LABS: BASOPHILS # (AUTO) 0.03 x10^3/uL (0-0.1); BASOPHILS % (AUTO) 0 % (0-1); EOSINOPHILS # (AUTO) 0.25 x10^3/uL (0-0.4); EOSINOPHILS % (AUTO) 3 % (1-7); LYMPHOCYTES % (AUTO) 12 % (22-44); MD NO; MEAN CORPUSCULAR HEMOGLOBIN 30.8 pg (27.0-34.8); MEAN CORPUSCULAR HGB CONC 34.5 g/dL (32.4-35.8); MEAN CORPUSCULAR VOLUME 89.3 fL (80-100); MEAN PLATELET VOLUME 8.1 fL (7.4-10.4); MONOCYTES # (AUTO) 0.78 x10^3/uL (0.2-0.8); MONOCYTES % (AUTO) 9 % (2-9); NEUTROPHILS # (AUTO) 6.66 x10^3/uL (1.8-6.8); NEUTROPHILS % (AUTO) 76 % (42-75); PLATELET COUNT 176 x10^3/uL (130-400); RED BLOOD COUNT 3.26 x10^6/uL (3.82-5.3); RED CELL DISTRIBUTION WIDTH 15.8 % (9.6-15.2)
[2018-02-21 04:50] LABS: ANION GAP 7 mmol/L (5-15); CALCIUM 7.2 mg/dL (8.5-10.1); CHLORIDE 109 mmol/L (98-107); CREATININE 2.38 mg/dL (0.55-1.02)
[2018-02-21] MEDS: CALCITRIOL NG SCH (08:43)
[2018-02-21] MEDS: FENTANYL PF 100 MCG/2ML IVPush PRN ×4 (08:43→22:09)
[2018-02-21] MEDS: POTASSIUM CHLORIDE 20 MEQ TAB.ER.PRT NG SCH (08:43)
[2018-02-21] MEDS ORDERED: CALCITRIOL NG SCH (09:00)
[2018-02-21] MEDS ORDERED: FILTER, DISP 1.2 MICRON FOR TPN/PVN IV PRN (15:00)
[2018-02-21] MEDS ORDERED: SMOF TPN IV SCH (17:00)
[2018-02-21] MEDS ORDERED: TPN PER PHARMACY MC PRN (17:00)
[2018-02-21] MEDS ORDERED: DEXTROSE 50%, 50ML SYRINGE IVPush PRN (17:00)
[2018-02-21] MEDS ORDERED: AMINO ACID 10% IV SCH (17:00)
[2018-02-21] MEDS ORDERED: DEXTROSE 70% IV SCH (17:00)
[2018-02-21] MEDS ORDERED: FAT EMUL IV SCH (17:00)
[2018-02-21] MEDS ORDERED: DEXTROSE 10% 500 ML IV PRN (17:00)
[2018-02-21] MEDS ORDERED: [UNRECOGNIZED DRUG - OTHER] IV SCH (17:00)
[2018-02-21] MEDS: INSULIN REGULAR MEDIUM DOSE Q6H X 48HRS SQ-INSULIN SCH (21:00)
[2018-02-22] MEDS: PIPERACILLIN/TAZO/PMX 2.25GM 50 ML IVPB SCH ×3 (01:35→18:08)
[2018-02-22] MEDS: SUCRALFATE 1 GM/10 ML UDC PO SCH ×4 (03:00→19:27)
[2018-02-22] MEDS: INSULIN REGULAR MEDIUM DOSE Q6H X 48HRS SQ-INSULIN SCH ×4 (03:00→22:02)
[2018-02-22] MEDS: AMIODARONE 900 MG in DEXTROSE 5% 482 ML IV PRN (04:48)
[2018-02-22 05:31] LABS: CHLORIDE 112 mmol/L (98-107)
[2018-02-22 05:43] LABS: ALBUMIN 1.3 g/dL (3.4-5.0); ANION GAP 4 mmol/L (5-15); CALCIUM 7.2 mg/dL (8.5-10.1); CREATININE 2.15 mg/dL (0.55-1.02); PREALBUMIN 6.2 mg/dL (20.0-40.0); TRIGLYCERIDES 98 mg/dL (50-200)
[2018-02-22 05:48] LABS: BASOPHILS # (AUTO) 0.01 x10^3/uL (0-0.1); BASOPHILS % (AUTO) 0 % (0-1); EOSINOPHILS % (AUTO) 3 % (1-7); LYMPHOCYTES # (AUTO) 0.87 x10^3/uL (1-3.4); LYMPHOCYTES % (AUTO) 10 % (22-44); MD NO; MEAN CORPUSCULAR HEMOGLOBIN 30.9 pg (27.0-34.8); MEAN CORPUSCULAR HGB CONC 34.5 g/dL (32.4-35.8); MEAN CORPUSCULAR VOLUME 89.7 fL (80-100); MONOCYTES # (AUTO) 0.91 x10^3/uL (0.2-0.8); MONOCYTES % (AUTO) 10 % (2-9); NEUTROPHILS # (AUTO) 7.05 x10^3/uL (1.8-6.8); NEUTROPHILS % (AUTO) 77 % (42-75); PLATELET COUNT 240 x10^3/uL (130-400); RED BLOOD COUNT 3.28 x10^6/uL (3.82-5.3); RED CELL DISTRIBUTION WIDTH 16.4 % (9.6-15.2)
[2018-02-22] MEDS: CALCITRIOL NG SCH (09:00)
[2018-02-22] MEDS: PANTOPRAZOLE 80 MG in SODIUM CHLORIDE 0.9% 100 ML IV SCH ×2 (09:26→18:08)
[2018-02-22 15:28] VITALS: BP 148/75
[2018-02-22] MEDS ORDERED: FAT EMUL IV SCH (17:00)
[2018-02-22] MEDS ORDERED: SMOF TPN IV SCH (17:00)
[2018-02-22] MEDS ORDERED: DEXTROSE 70% IV SCH (17:00)
[2018-02-22] MEDS ORDERED: AMINO ACID 10% IV SCH (17:00)
[2018-02-22] MEDS ORDERED: [UNRECOGNIZED DRUG - OTHER] IV SCH (17:00)
[2018-02-22 20:20] VITALS: BP 150/63
[2018-02-23] VITALS (7 sets, daily range): BP systolic 104–171; BP diastolic 61–79
[2018-02-23] MEDS: hydrALAzine 20 MG/ML, 1ML IV PRN (00:26)
[2018-02-23] MEDS: PIPERACILLIN/TAZO/PMX 2.25GM 50 ML IVPB SCH ×4 (01:05→21:19)
[2018-02-23] MEDS: morphine SULFATE 10 MG/ML, 1ML IVPush PRN ×6 (01:06→21:19)
[2018-02-23] MEDS: SUCRALFATE 1 GM/10 ML UDC PO SCH ×4 (01:11→21:00)
[2018-02-23 02:49] LABS: MEAN CORPUSCULAR HEMOGLOBIN 30.6 pg (27.0-34.8); MEAN CORPUSCULAR HGB CONC 34.1 g/dL (32.4-35.8); MEAN CORPUSCULAR VOLUME 89.8 fL (80-100); MEAN PLATELET VOLUME 7.8 fL (7.4-10.4); PLATELET COUNT 275 x10^3/uL (130-400); RED BLOOD COUNT 3.34 x10^6/uL (3.82-5.3); RED CELL DISTRIBUTION WIDTH 16.3 % (9.6-15.2)
[2018-02-23 02:57] LABS: ANION GAP 7 mmol/L (5-15); CALCIUM 7.3 mg/dL (8.5-10.1); CHLORIDE 110 mmol/L (98-107); CREATININE 1.86 mg/dL (0.55-1.02)
[2018-02-23] MEDS: INSULIN REGULAR MEDIUM DOSE Q6H X 48HRS SQ-INSULIN SCH ×3 (02:58→15:00)
[2018-02-23 03:01] LABS: MD YES
[2018-02-23 03:04] LABS: BAND#(MANUAL) 0.31 x10^3/uL; BANDS%(MANUAL) 4 % (0-7); BASOS#(MANUAL) 0.08 x10^3/uL (0-0.1); BASOS% (MANUAL) 1 % (0-1); EOS#(MANUAL) 0.39 x10^3/uL (0.0-0.4); EOS% (MANUAL) 5 % (1-7); LYMPH#(MANUAL) 1.25 x10^3/uL (1-3.4); LYMPHS% (MANUAL) 16 % (22-44); MONOS#(MANUAL) 0.62 x10^3/uL (0.3-2.7); MONOS% (MANUAL) 8 % (2-9); SEG#(MANUAL) 5.15 x10^3/uL (1.8-6.8); SEGS% (MANUAL) 66 % (42-75)
[2018-02-23 03:05] LABS: <PLATELET ESTIMATE> ADEQUATE; <PLT MORPHOLOGY> NORMAL PLT MORPH; ANISOCYTOSIS 1+; POLYCHROMASIA 1+; TOXIC GRAN 1+
[2018-02-23] MEDS: PANTOPRAZOLE 80 MG in SODIUM CHLORIDE 0.9% 100 ML IV SCH ×2 (05:37→15:25)
[2018-02-23] MEDS ORDERED: SODIUM PHOSPHATE 4 MEQ/ML IV SCH (08:00)
[2018-02-23] MEDS ORDERED: SODIUM PHOSPHATE 30 MMOL in SODIUM CHLORIDE 0.9% 500 ML IV ONE (08:00)
[2018-02-23] MEDS ORDERED: MAGNESIUM SULFATE PMX 2GM/50ML 50 ML IV ONE (08:00)
[2018-02-23] MEDS: CALCITRIOL NG SCH (08:48)
[2018-02-23] MEDS ORDERED: FUROSEMIDE 20 MG/2 ML IV ONE (09:30)
[2018-02-23] MEDS: ONDANSETRON 2MG/ML, 2ML IVPush PRN (11:24)
[2018-02-23] MEDS: FILTER, DISP 1.2 MICRON FOR TPN/PVN IV PRN (16:58)
[2018-02-23] MEDS ORDERED: FAT EMUL IV SCH (17:00)
[2018-02-23] MEDS ORDERED: DEXTROSE 70% IV SCH (17:00)
[2018-02-23] MEDS ORDERED: [UNRECOGNIZED DRUG - OTHER] IV SCH (17:00)
[2018-02-23] MEDS ORDERED: AMINO ACID 10% IV SCH (17:00)
[2018-02-23] MEDS ORDERED: SMOF TPN IV SCH (17:00)
[2018-02-24] MEDS: hydrALAzine 20 MG/ML, 1ML IV PRN ×2 (00:14→10:44)
[2018-02-24] MEDS: morphine SULFATE 10 MG/ML, 1ML IVPush PRN ×3 (00:14→10:44)
[2018-02-24 00:38] VITALS: BP 160/70
[2018-02-24 02:00] VITALS: BP 135/78
[2018-02-24] MEDS: PANTOPRAZOLE 80 MG in SODIUM CHLORIDE 0.9% 100 ML IV SCH ×2 (02:05→13:58)
[2018-02-24] MEDS: SUCRALFATE 1 GM/10 ML UDC PO SCH ×4 (03:00→21:38)
[2018-02-24] MEDS: PIPERACILLIN/TAZO/PMX 2.25GM 50 ML IVPB SCH ×4 (03:59→21:38)
[2018-02-24 05:46] LABS: ANION GAP 10 mmol/L (5-15); CALCIUM 7.4 mg/dL (8.5-10.1); CHLORIDE 106 mmol/L (98-107); CREATININE 1.63 mg/dL (0.55-1.02)
[2018-02-24 05:48] LABS: BASOPHILS # (AUTO) 0.02 x10^3/uL (0-0.1); BASOPHILS % (AUTO) 0 % (0-1); EOSINOPHILS # (AUTO) 0.36 x10^3/uL (0-0.4); EOSINOPHILS % (AUTO) 5 % (1-7); LYMPHOCYTES # (AUTO) 0.89 x10^3/uL (1-3.4); LYMPHOCYTES % (AUTO) 12 % (22-44); MD NO; MEAN CORPUSCULAR HEMOGLOBIN 30.1 pg (27.0-34.8); MEAN CORPUSCULAR HGB CONC 33.7 g/dL (32.4-35.8); MEAN CORPUSCULAR VOLUME 89.5 fL (80-100); MEAN PLATELET VOLUME 7.8 fL (7.4-10.4); MONOCYTES # (AUTO) 0.98 x10^3/uL (0.2-0.8); MONOCYTES % (AUTO) 14 % (2-9); NEUTROPHILS # (AUTO) 4.99 x10^3/uL (1.8-6.8); NEUTROPHILS % (AUTO) 69 % (42-75); PLATELET COUNT 333 x10^3/uL (130-400); RED BLOOD COUNT 3.65 x10^6/uL (3.82-5.3); RED CELL DISTRIBUTION WIDTH 16.5 % (9.6-15.2)
[2018-02-24 06:59] VITALS: BP 158/86
[2018-02-24] MEDS: INSULIN REGULAR MEDIUM DOSE QDAY SQ-INSULIN SCH (08:10)
[2018-02-24] MEDS: FUROSEMIDE 40 MG/4 ML IV SCH (10:44)
[2018-02-24] MEDS ORDERED: CALCIUM GLUCONATE 9.2 MEQ in SODIUM CHLORIDE 0.9% 100 ML IV ONE (13:00)
[2018-02-24 13:10] VITALS: BP 154/74
[2018-02-24] MEDS ORDERED: DEXTROSE 70% IV SCH (17:00)
[2018-02-24] MEDS ORDERED: SMOF TPN IV SCH (17:00)
[2018-02-24] MEDS ORDERED: [UNRECOGNIZED DRUG - OTHER] IV SCH (17:00)
[2018-02-24] MEDS ORDERED: FAT EMUL IV SCH (17:00)
[2018-02-24] MEDS ORDERED: AMINO ACID 10% IV SCH (17:00)
[2018-02-24] MEDS: FILTER, DISP 1.2 MICRON FOR TPN/PVN IV PRN (17:43)
[2018-02-24 19:09] VITALS: BP 147/63
[2018-02-25] MEDS: PANTOPRAZOLE 80 MG in SODIUM CHLORIDE 0.9% 100 ML IV SCH ×3 (00:18→21:08)
[2018-02-25 00:48] VITALS: BP 135/65
[2018-02-25] MEDS: PIPERACILLIN/TAZO/PMX 2.25GM 50 ML IVPB SCH ×4 (04:13→21:08)
[2018-02-25] MEDS: SUCRALFATE 1 GM/10 ML UDC PO SCH ×5 (04:13→23:35)
[2018-02-25 07:43] LABS: BASOPHILS # (AUTO) 0.02 x10^3/uL (0-0.1); BASOPHILS % (AUTO) 0 % (0-1); EOSINOPHILS # (AUTO) 0.32 x10^3/uL (0-0.4); EOSINOPHILS % (AUTO) 5 % (1-7); LYMPHOCYTES # (AUTO) 0.94 x10^3/uL (1-3.4); LYMPHOCYTES % (AUTO) 15 % (22-44); MD NO; MEAN CORPUSCULAR HEMOGLOBIN 29.5 pg (27.0-34.8); MEAN CORPUSCULAR HGB CONC 33.4 g/dL (32.4-35.8); MEAN CORPUSCULAR VOLUME 88.5 fL (80-100); MEAN PLATELET VOLUME 7.7 fL (7.4-10.4); MONOCYTES # (AUTO) 0.68 x10^3/uL (0.2-0.8); MONOCYTES % (AUTO) 11 % (2-9); NEUTROPHILS # (AUTO) 4.54 x10^3/uL (1.8-6.8); NEUTROPHILS % (AUTO) 70 % (42-75); PLATELET COUNT 358 x10^3/uL (130-400); RED BLOOD COUNT 3.46 x10^6/uL (3.82-5.3); RED CELL DISTRIBUTION WIDTH 16.4 % (9.6-15.2)
[2018-02-25 07:54] LABS: ALANINE AMINOTRANSFERASE 9 U/L (12-78); ALBUMIN 1.4 g/dL (3.4-5.0); ANION GAP 8 mmol/L (5-15); CALCIUM 7.6 mg/dL (8.5-10.1); CHLORIDE 104 mmol/L (98-107); CREATININE 1.61 mg/dL (0.55-1.02)
[2018-02-25 07:56] LABS: ALKALINE PHOSPHATASE 64 U/L (45-117); BILIRUBIN,TOTAL 0.3 mg/dL (0.2-1.0); TOTAL PROTEIN 4.6 g/dL (6.4-8.2)
[2018-02-25] MEDS: INSULIN REGULAR MEDIUM DOSE QDAY SQ-INSULIN SCH (08:03)
[2018-02-25 08:23] VITALS: BP 145/68
[2018-02-25] MEDS ORDERED: ERGOCALCIFEROL 8,000UNIT/ML PO SCH (09:00)
[2018-02-25] MEDS: FUROSEMIDE 40 MG/4 ML IV SCH (09:03)
[2018-02-25] MEDS: morphine SULFATE 10 MG/ML, 1ML IVPush PRN ×2 (13:00→23:48)
[2018-02-25 14:30] VITALS: BP 165/76
[2018-02-25] MEDS ORDERED: SMOF TPN IV SCH (17:00)
[2018-02-25] MEDS ORDERED: [UNRECOGNIZED DRUG - OTHER] IV SCH (17:00)
[2018-02-25] MEDS ORDERED: AMINO ACID 10% IV SCH (17:00)
[2018-02-25] MEDS ORDERED: FAT EMUL IV SCH (17:00)
[2018-02-25] MEDS ORDERED: DEXTROSE 70% IV SCH (17:00)
[2018-02-25] MEDS: FILTER, DISP 1.2 MICRON FOR TPN/PVN IV PRN (17:21)
[2018-02-25 19:29] VITALS: BP 163/74
[2018-02-25 23:41] VITALS: BP 150/82
[2018-02-25] MEDS: hydrALAzine 20 MG/ML, 1ML IV PRN (23:47)
[2018-02-26 00:24] VITALS: BP 105/60
[2018-02-26 00:54] VITALS: BP 123/55
[2018-02-26 04:35] LABS: BASOPHILS # (AUTO) 0.04 x10^3/uL (0-0.1); BASOPHILS % (AUTO) 1 % (0-1); EOSINOPHILS # (AUTO) 0.24 x10^3/uL (0-0.4); EOSINOPHILS % (AUTO) 4 % (1-7); LYMPHOCYTES # (AUTO) 1.11 x10^3/uL (1-3.4); LYMPHOCYTES % (AUTO) 16 % (22-44); MD NO; MEAN CORPUSCULAR HEMOGLOBIN 30.3 pg (27.0-34.8); MEAN CORPUSCULAR HGB CONC 33.9 g/dL (32.4-35.8); MEAN CORPUSCULAR VOLUME 89.3 fL (80-100); MEAN PLATELET VOLUME 7.7 fL (7.4-10.4); MONOCYTES # (AUTO) 0.77 x10^3/uL (0.2-0.8); MONOCYTES % (AUTO) 11 % (2-9); NEUTROPHILS # (AUTO) 4.64 x10^3/uL (1.8-6.8); NEUTROPHILS % (AUTO) 68 % (42-75); PLATELET COUNT 375 x10^3/uL (130-400); RED BLOOD COUNT 3.22 x10^6/uL (3.82-5.3); RED CELL DISTRIBUTION WIDTH 16.3 % (9.6-15.2)
[2018-02-26] MEDS: PIPERACILLIN/TAZO/PMX 2.25GM 50 ML IVPB SCH (04:44)
[2018-02-26 04:48] LABS: ALANINE AMINOTRANSFERASE 7 U/L (12-78); ALBUMIN 1.2 g/dL (3.4-5.0); ANION GAP 8 mmol/L (5-15); CALCIUM 7.7 mg/dL (8.5-10.1); CHLORIDE 102 mmol/L (98-107); CREATININE 1.54 mg/dL (0.55-1.02)
[2018-02-26 04:50] LABS: ALKALINE PHOSPHATASE 67 U/L (45-117); BILIRUBIN,TOTAL 0.2 mg/dL (0.2-1.0); TOTAL PROTEIN 4.6 g/dL (6.4-8.2)
[2018-02-26] MEDS: PANTOPRAZOLE 80 MG in SODIUM CHLORIDE 0.9% 100 ML IV SCH (06:48)
[2018-02-26] MEDS: morphine SULFATE 10 MG/ML, 1ML IVPush PRN ×3 (06:54→14:12)
[2018-02-26] MEDS: INSULIN REGULAR MEDIUM DOSE QDAY SQ-INSULIN SCH (07:45)
[2018-02-26 08:34] VITALS: BP 148/73
[2018-02-26] MEDS ORDERED: ERGOCALCIFEROL 8,000UNIT/ML PO SCH (09:00)
[2018-02-26] MEDS: SUCRALFATE 1 GM/10 ML UDC PO SCH ×2 (09:24→14:12)
[2018-02-26] MEDS: ONDANSETRON 2MG/ML, 2ML IVPush PRN (09:24)
[2018-02-26] MEDS: FUROSEMIDE 40 MG/4 ML IV SCH (09:24)
[2018-02-26] MEDS ORDERED: ERGOCALCIFEROL 50,000 UNIT CAPSULE PO SCH (11:00)
[2018-02-26] MEDS ORDERED: ERGO500017 PO (12:20)
[2018-02-26] MEDS ORDERED: Tpn Per Pharmacy MC (12:20)
[2018-02-26] MEDS ORDERED: SUCR1ORA5 PO (12:20)
[2018-02-26] MEDS ORDERED: FILTER, DISP 1.2 MICRON FOR TPN/PVN IV PRN (12:30)
[2018-02-26 12:40] VITALS: BP 145/81
[2018-02-26] MEDS ORDERED: SMOF TPN IV SCH (17:00)
[2018-02-26] MEDS ORDERED: FAT EMUL IV SCH (17:00)
[2018-02-26] MEDS ORDERED: AMINO ACID 10% IV SCH (17:00)
[2018-02-26] MEDS ORDERED: DEXTROSE 70% IV SCH (17:00)
[2018-02-26] MEDS ORDERED: [UNRECOGNIZED DRUG - OTHER] IV SCH (17:00)
== END 2018-02-26 14:31 | DRG 326 ==
LOC: ED 14:34 → EDIP 15:38 → CCU 17:03 → 5SO 02-22 15:13 → 4NOR 02-25 23:20
PROVIDERS: ADMIT Hospitalist; ATTEND Hospitalist
PROC: 02HV33Z Insertion of Infusion Device into Superior Vena Cava, Percutaneous Approach (ICD-10-PCS; 2018-02-14)
PROC: 0DQ90ZZ Repair Duodenum, Open Approach (ICD-10-PCS; 2018-02-14)
PROC: 0DB68ZX Excision of Stomach, Via Natural or Artificial Opening Endoscopic, Diagnostic (ICD-10-PCS; principal; 2018-02-14 17:30)
PROC: 0T9B70Z Drainage of Bladder with Drainage Device, Via Natural or Artificial Opening (ICD-10-PCS; 2018-02-15)
PROC: 0W3P0ZZ Control Bleeding in Gastrointestinal Tract, Open Approach (ICD-10-PCS; 2018-02-16)
PROC: 5A1955Z Respiratory Ventilation, Greater than 96 Consecutive Hours (ICD-10-PCS; 2018-02-16)
PROC: 30233L1 Transfusion of Nonautologous Fresh Plasma into Peripheral Vein, Percutaneous Approach (ICD-10-PCS; 2018-02-16)
PROC: 30233N1 Transfusion of Nonautologous Red Blood Cells into Peripheral Vein, Percutaneous Approach (ICD-10-PCS; 2018-02-16)
PROC: 30233K1 Transfusion of Nonautologous Frozen Plasma into Peripheral Vein, Percutaneous Approach (ICD-10-PCS; 2018-02-16)
PROC: 0BH17EZ Insertion of Endotracheal Airway into Trachea, Via Natural or Artificial Opening (ICD-10-PCS; 2018-02-16)
DX: K26.0 Acute duodenal ulcer with hemorrhage (principal); N17.0 Acute kidney failure with tubular necrosis; G93.41 Metabolic encephalopathy; E43 Unspecified severe protein-calorie malnutrition; D65 Disseminated intravascular coagulation [defibrination syndrome]; J96.01 Acute respiratory failure with hypoxia; R57.8 Other shock; I50.32 Chronic diastolic (congestive) heart failure; D62 Acute posthemorrhagic anemia; E87.2 Acidosis; Z99.11 Dependence on respirator [ventilator] status; J98.11 Atelectasis; K56.7 Ileus, unspecified; K44.9 Diaphragmatic hernia without obstruction or gangrene; K20.9 Esophagitis, unspecified; I48.0 Paroxysmal atrial fibrillation; Z68.31 Body mass index [BMI] 31.0-31.9, adult; M54.9 Dorsalgia, unspecified; R00.0 Tachycardia, unspecified; R53.81 Other malaise; D72.828 Other elevated white blood cell count; E78.5 Hyperlipidemia, unspecified; E83.39 Other disorders of phosphorus metabolism; E83.42 Hypomagnesemia; E83.51 Hypocalcemia; E83.52 Hypercalcemia; E87.6 Hypokalemia; E87.8 Other disorders of electrolyte and fluid balance, not elsewhere classified; I11.0 Hypertensive heart disease with heart failure; I44.1 Atrioventricular block, second degree; R13.10 Dysphagia, unspecified; Z51.5 Encounter for palliative care; Z66 Do not resuscitate; Z80.0 Family history of malignant neoplasm of digestive organs; Z82.49 Family history of ischemic heart disease and other diseases of the circulatory system; Z90.710 Acquired absence of both cervix and uterus; Z90.49 Acquired absence of other specified parts of digestive tract
CPT/HCPCS: 36415; 36556; 36600; 71045; 74018; 80048; 80053; 81003; 82040; 82306; 82330; 82550; 82803; 82962; 83605; 83690; 83735; 83970; 84100; 84134; 84478; 84484; 84550; 85014; 85018; 85025; 85027; 85049; 85379; 85384; 85610; 85730; 86677; 86850; 86900; 86923; 87040; 87070; 87081; 87205; 87324; 88305; 88342; 93005; 94002; 94003; 96365; 96366; 96375; 99291; J0610; J0690; J1940; J2250; J2405; J2543; J2550; J2704; J3010; J3475; J3480; J7070; C9113; G0461; J0282; J0330; J0360; J1160; J2270; J2370; J3420; J7030; J7040; J7050; J7060; J7120; P9016; P9017; S0074